=== PATIENT | male | born 1965 | race Caucasian/White ===

== ENCOUNTER 2017-12-25 14:33 | Inpatient (IN) | payer BC ==
[2017-12-25 14:51] VITALS: BMI 30.7
[2017-12-25] MEDS ORDERED: ALBUTEROL SO4 2.5/IPRATROPIUM 0.5 INH SOL 3 ML VIAL.NEB. NEB ONE ×4 (14:53→17:09)
[2017-12-25] MEDS ORDERED: predniSONE 20 MG TABLET (UD) PO ONE (14:53)
[2017-12-25] MEDS ORDERED: methylPREDNISolone NA SUCC 125 MG/2 ML VIAL ONE (15:46)
[2017-12-25] MEDS ORDERED: AZITHROMYCIN IVPB 500 MG in DEXTROSE 5%-WATER - 250 ML IVPB ONE (15:52)
[2017-12-25] MEDS ORDERED: AZITHROMYCIN 500 MG VIAL IVPB ONE (15:56)
[2017-12-25 15:58] LABS: BASO % 1.8 % (0-2.0); EOS % 2.1 % (0-4.5); HEMATOCRIT 45.7 % (35.4-49); HEMOGLOBIN 15.9 GM/dl (11.7-16.9); LYMPH % 17.7 % (8-40); MCH 31.7 pg (25.7-33.7); MCHC 34.9 g/dl (32.0-35.9); MEAN CELL VOLUME 90.9 fl (80-96); MEAN PLT VOLUME 8.7 fl (7.5-11.1); MONO % 10.3 % (3.8-10.2); NEUT % 68.1 % (42.8-82.8); PLATELET COUNT 196 K/MM3 (134-434); RBC 5.02 M/mm3 (4.00-5.60); RDW 12.1 % (11.9-15.9); WHITE BLOOD COUNT 10.4 K/mm3 (4.0-10.8)
[2017-12-25] MEDS ORDERED: methylPREDNISolone NA SUCC 125 MG/2 ML VIAL IVPUSH ONE (15:59)
[2017-12-25] MEDS ORDERED: chlordiazePOXIDE HCL 25 MG CAPSULE PO ONE (15:59)
[2017-12-25] MEDS ORDERED: chlordiazePOXIDE HCL 25 MG CAPSULE ONE (16:00)
--- NOTE | 2017-12-25 16:06 | PDOC ---
History of Present Illness - General History Source: Patient, Family Exam Limitations: No Limitations <Emmanuel Beltran - Last Filed: 12/25/17 16:31> - General History Source: Patient, Family, Old Records Exam Limitations: No Limitations - History of Present Illness Initial Comments: 12/25/17 16:10 The patient is a 52 year old male with a past medical history of smoking, asthma , and hyperlipidemia who presents to the emergency department with difficulty breathing, cough, and abdominal pain for 1 day. The patient states that 4 weeks ago he had similar symptoms and went to his primary doctor, Dr. Mayorga. At that time he was prescribed a course of antibiotics, a Z-bridgett for 3 days, and prednisone for 6 days. He reports that his symptoms improved but never completely resolved. Today he reports that he woke up with difficulty breathing , cough, and abdominal pain. He describes his abdominal pain as estrada along the inferior border of his left ribs. <Erick Tirado - Last Filed: 12/25/17 17:16> - General Chief Complaint: Shortness of Breath Stated Complaint: COUGH, Time Seen by Provider: 12/25/17 14:34 Past History - Past Medical History Asthma: Yes COPD: No Psychiatric Problems: Yes (drug and etoh abuse) - Suicide/Smoking/Psychosocial Hx Smoking Status: Yes Smoking History: Current every day smoker Have you smoked in the past 12 months: Yes Number of Cigarettes Smoked Daily: 30 Information on smoking cessation initiated: Yes 'Breaking Loose' booklet given: 12/25/17 Hx Alcohol Use: Yes (gallon wine per day) Drug/Substance Use Hx: Yes (xanax, cocaine) Substance Use Type: Alcohol, Cocaine, Tranquilizers <Emmanuel Beltran - Last Filed: 12/25/17 16:31> <Erick Tirado - Last Filed: 12/25/17 17:16> - Past Medical History Allergies/Adverse Reactions: Allergies Allergy/AdvReac Type Severity Reaction Status Date / Time No Known Allergies Allergy Verified 12/25/17 14:34 Home Medications: Ambulatory Orders Albuterol Sulfate Inhaler - [Ventolin HFA Inhaler -] 2 inh PO Q4H PRN #1 inh 04/17 Fluticasone/Salmeterol [Advair Hfa 230-21 Mcg Inhaler] 1 inh PO BID #1 inhaler 10/09/14 Montelukast Sodium [Singulair] 10 mg PO DAILY 12/25/17 Review of Systems - Review of Systems Able to Perform ROS?: Yes Comments:: 12/25/17 16:10 GENERAL/CONSTITUTIONAL: No fever or chills. No weakness. HEAD, EYES, EARS, NOSE AND THROAT: No change in vision. No ear pain or discharge. No sore throat. CARDIOVASCULAR: No chest pain. RESPIRATORY: (+) cough, difficulty breathing. GASTROINTESTINAL: (+) Abdominal pain. No nausea, vomiting, diarrhea or constipation. GENITOURINARY: No dysuria, frequency, or change in urination. MUSCULOSKELETAL: No joint or muscle swelling or pain. No neck or back pain. SKIN: No rash NEUROLOGIC: No headache, vertigo, loss of consciousness, or change in strength/ sensation. ENDOCRINE: No increased thirst. No abnormal weight change. HEMATOLOGIC/LYMPHATIC: No anemia, easy bleeding, or history of blood clots. ALLERGIC/IMMUNOLOGIC: No hives or skin allergy. <Erick Tirado - Last Filed: 12/25/17 17:16> *Physical Exam - Vital Signs Last Vital Signs Temp Pulse Resp BP Pulse Ox 98.4 F 103 H 24 126/82 98 12/25/17 14:33 12/25/17 14:33 12/25/17 14:33 12/25/17 14:33 12/25/17 14:49 <Emmanuel Beltran - Last Filed: 12/25/17 16:31> - Vital Signs Last Vital Signs Temp Pulse Resp BP Pulse Ox 98.4 F 111 H 22 121/81 98 12/25/17 14:33 12/25/17 16:03 12/25/17 16:03 12/25/17 16:03 12/25/17 16:03 - Physical Exam Comments: 12/25/17 16:11 GENERAL: Awake, alert, and fully oriented, in no acute distress HEAD: No signs of trauma EYES: PERRLA, EOMI, sclera anicteric, conjunctiva clear ENT: Auricles normal inspection, hearing grossly normal, nares patent, oropharynx clear without exudates. Moist mucosa NECK: Normal ROM, supple, no lymphadenopathy, JVD, or masses LUNGS: (+) Diffuse expiratory wheezes bilaterally, Mildly tachypneic HEART: Regular rate and rhythm, normal S1 and S2, no murmurs, rubs or gallops ABDOMEN: Soft, nontender, normoactive bowel sounds. No guarding, no rebound. No masses EXTREMITIES: Normal range of motion, no edema. No clubbing or cyanosis. No cords, erythema, or tenderness NEUROLOGICAL: Cranial nerves II through XII grossly intact. Normal speech, normal gait SKIN: Warm, Dry, normal turgor, no rashes or lesions noted. <Erick Tirado - Last Filed: 12/25/17 17:16> Heart Score/ECG Review #1 ECG reviewed & interpreted by me at: 15:35 12/25/17 16:10 NSR 103, no std/veronika, T wave flat III, normal axis, normal intervals, QTC 455 msec <Emmanuel Beltran - Last Filed: 12/25/17 16:31> ED Treatment Course - LABORATORY CBC & Chemistry Diagram: 12/25/17 15:49 12/25/17 15:49 - ADDITIONAL ORDERS Additional order review: 12/25/17 15:49 RBC 5.02 MCV 90.9 MCHC 34.9 RDW 12.1 MPV 8.7 Neutrophils % 68.1 Lymphocytes % 17.7 Monocytes % 10.3 H Eosinophils % 2.1 Basophils % 1.8 - RADIOLOGY Radiology Studies Ordered: Category Date Time Status CHEST X-RAY PORTABLE* [RAD] Stat Radiology 12/25/17 14:53 Taken - Medications Given in the ED: ED Medications Discontinued Medications Generic Name Dose Route Start Last Admin Trade Name Freq PRN Reason Stop Dose Admin Albuterol/Ipratropium 3 amp 12/25/17 14:53 12/25/17 14:54 Duoneb - NEB 12/25/17 14:54 3 amp ONCE ONE Administration <Emmanuel Beltran - Last Filed: 12/25/17 16:31> - LABORATORY CBC & Chemistry Diagram: 12/25/17 15:49 12/25/17 15:49 - ADDITIONAL ORDERS Additional order review: 12/25/17 15:49 RBC 5.02 MCV 90.9 MCHC 34.9 RDW 12.1 MPV 8.7 Neutrophils % 68.1 Lymphocytes % 17.7 Monocytes % 10.3 H Eosinophils % 2.1 Basophils % 1.8 - RADIOLOGY Radiograph Interpretation: 12/25/17 17:16 EXAM#: TYPE/EXAM: RESULT: [id number] RAD/CHEST X-RAY PORTABLE* Indication: Cough. Wheezing. Technique: Single AP portable view of the chest. Comparison: chest x-ray. Findings: There is no evidence of acute infiltrate, pulmonary vascular congestion or pleural effusion. There is no definable pneumothorax. Normal size and contours of the cardiomediastinal silhouette. The thoracic aorta is mildly uncoiled. No abnormal deviation of the trachea. There is acromioclavicular arthropathy. Impression: No evidence of acute infiltrate, pulmonary vascular congestion or pleural effusion. Reported By: Malcolm Vazquez DO 12/25/17 1621 - Medications Given in the ED: ED Medications Discontinued Medications Generic Name Dose Route Start Last Admin Trade Name Freq PRN Reason Stop Dose Admin Albuterol/Ipratropium 3 amp 12/25/17 14:53 12/25/17 14:54 Duoneb - NEB 12/25/17 14:54 3 amp ONCE ONE Administration Chlordiazepoxide HCl 50 mg 12/25/17 15:59 12/25/17 16:02 Librium - PO 12/25/17 16:00 50 mg ONCE ONE Administration Methylprednisolone Sodium Succinate 125 mg 12/25/17 15:59 12/25/17 16:02 Solu-Medrol - IVPUSH 12/25/17 16:00 125 mg ONCE ONE Administration Prednisone 60 mg 12/25/17 14:53 12/25/17 15:55 Deltasone - PO 12/25/17 14:54 Not Given ONCE ONE <Erick Tirado - Last Filed: 12/25/17 17:16> Medical Decision Making - Medical Decision Making 12/25/17 16:06 A portion of this note was documented by scribe services under my direction. I have reviewed the details of the note, within reason, and agree with the documentation with the following case summary and management plan written by me. Patient treated in the ED. Nursing notes are reviewed and incorporated into the medical decision-making. Vital signs reviewed. Peripheral IV access obtained by the nurse, laboratory studies are drawn and sent, reviewed and interpreted by myself. Vital Signs Temp Pulse Resp BP Pulse Ox 98.4 F 111 H 22 121/81 98 12/25/17 14:33 12/25/17 16:03 12/25/17 16:03 12/25/17 16:03 12/25/17 16:03 52-year-old male with past medical history of alcohol abuse, hyperlipidemia, asthma, current smoker presents with worsening coughing and wheezing. The patient reports one month of the symptoms. One month ago, the patient was prescribed prednisone and was taking albuterol with some improvement in symptoms. However in the last 2 days, the patient has reported worsening productive cough with difficulty breathing and reproducible chest pain with cough. Denies fevers or chills. States has become increasingly more difficult to breathe despite taking albuterol. I suspect patient likely having an asthma or COPD exacerbation with probable underlying pneumonia. We'll start doing nebs in addition to steroids and antibiotics. Patient denies alcohol draws at this time but will treat him prophylactically with Librium. If the symptoms do not improve, the patient will need to be admitted to the hospital for further evaluation. 12/25/17 16:31 Chest xray reviewed. No acute findings. CBC, BMP 12/25/17 15:49 12/25/17 15:49 CMP Sodium 134 mmol/L (136-145) L 12/25/17 15:49 Potassium 3.7 mmol/L (3.5-5.1) 12/25/17 15:49 Chloride 101 mmol/L (98-107) 12/25/17 15:49 Carbon Dioxide 26 mmol/L (22-28) 12/25/17 15:49 Anion Gap 7 (8-16) L 12/25/17 15:49 BUN 14 mg/dl (7-18) 12/25/17 15:49 Creatinine 1.2 mg/dl (0.6-1.3) 12/25/17 15:49 Creat Clearance w eGFR > 60 (>60) 12/25/17 15:49 Random Glucose 151 mg/dl (74-106) H 12/25/17 15:49 Calcium 9.0 mg/dl (8.4-10.2) 12/25/17 15:49 Magnesium 2.0 mg/dL (1.8-2.4) 12/25/17 15:49 Total Bilirubin 1.1 mg/dl (0.2-1.0) H 12/25/17 15:49 AST 70 U/L (10-42) H 12/25/17 15:49 ALT 47 U/L (10-40) H 12/25/17 15:49 Alkaline Phosphatase 49 U/L (32-92) 12/25/17 15:49 Troponin I < 0.03 ng/ml (0.00-0.06) 12/25/17 15:49 Total Protein 7.1 g/dl (6.4-8.3) 12/25/17 15:49 Albumin 4.4 g/dl (3.5-5.0) 12/25/17 15:49 The patient continues to wheeze despite the treatments. Given the symptoms, decision was made to admit the patient. I had spoken with the patient, who agrees with admission to the hospital. Case discussed with Dr. Mayorga. Given that the patient will be on librium and with asthma/COPD exacerbation, decision was made to admit patient to telemetry at [facility]. Case discussed in detail with admitting physician including history, physical exam and ancillary studies. Admitting physician has assumed care for the patient, will follow all pending diagnostics and will complete the evaluation and treatment. <Emmanuel Beltran - Last Filed: 12/25/17 16:31> *DC/Admit/Observation/Transfer - Discharge Dispostion Decision to Admit order: Yes <Emmanuel Beltran - Last Filed: 12/25/17 16:31> - Attestations Scribe Attestion: 12/25/17 16:11 Documentation prepared by Erick Tirado, acting as medical genetics director for Emmanuel Beltran MD. <Erick Tirado - Last Filed: 12/25/17 17:16> Diagnosis at time of Disposition: Acute asthma exacerbation Qualifiers: Asthma severity: unspecified severity Asthma persistence: unspecified Qualified Code(s): J45.901 - Unspecified asthma with (acute) exacerbation PNA (pneumonia) Qualifiers: Pneumonia type: due to unspecified organism Laterality: unspecified laterality Lung location: unspecified part of lung Qualified Code(s): J18.9 - Pneumonia, unspecified organism - Discharge Dispostion Condition at time of disposition: Stable
[2017-12-25 16:14] LABS: ALBUMIN 4.4 g/dl (3.5-5.0); ALK PHOS 49 U/L (32-92); ANION GAP 7 (8-16); BILIRUBIN,TOTAL 1.1 mg/dl (0.2-1.0); BLOOD UREA NITROGEN 14 mg/dl (7-18); CHLORIDE 101 mmol/L (98-107); CO2 26 mmol/L (22-28); CREATININE 1.2 mg/dl (0.6-1.3); GLUCOSE,RANDOM 151 mg/dl (74-106); POTASSIUM 3.7 mmol/L (3.5-5.1); SGOT/AST 70 U/L (10-42); SGPT/ALT 47 U/L (10-40); SODIUM 134 mmol/L (136-145); TOT PROT 7.1 g/dl (6.4-8.3)
[2017-12-25] MEDS ORDERED: CEFTRIAXONE 1,000 MG in DEXTROSE 5%-WATER - 50 ML IVPB ONE (16:25)
[2017-12-25] MEDS ORDERED: MAGNESIUM SULF 50% (8.12 MEQ/2 ML-1 GM VIAL) IVPB ONE (16:25)
[2017-12-25] MEDS ORDERED: cefTRIAXone SODIUM 1 GM VIAL ONE (16:58)
[2017-12-25] MEDS ORDERED: MAGNESIUM 1GM/D5W - 2 GM/200 ML IVPB IVPB ONE (16:58)
--- NOTE | 2017-12-25 20:23 | HP ---
Admitting History and Physical - Primary Care Physician PCP: Deonte Mayorga - Admission Chief Complaint: Cough, wheezing History of Present Illness: Pt with signigificant Hx/o Asthma, smoker, alcohol abuse (one gallon of wine/ beer per day) started to cough, wheeze 2 days ago; pt got worse and today came to ER were was found to have acute asthma exacerbation, probable PNA. History Source: Patient - Past Medical History Cardiovascular: Yes: Hyperlipdemia Pulmonary: Yes: Asthma - Smoking History Smoking history: Current every day smoker Have you smoked in the past 12 months: Yes Aproximately how many cigarettes per day: 30 - Alcohol/Substance Use Hx Alcohol Use: Yes (gallon wine per day) Home Medications - Allergies Allergies/Adverse Reactions: Allergies Allergy/AdvReac Type Severity Reaction Status Date / Time No Known Allergies Allergy Verified 12/25/17 14:34 - Home Medications Home Medications: Ambulatory Orders Albuterol Sulfate Inhaler - [Ventolin HFA Inhaler -] 2 inh PO Q4H PRN #1 inh 04/17 Fluticasone/Salmeterol [Advair Hfa 230-21 Mcg Inhaler] 1 inh PO BID #1 inhaler 10/09/14 Montelukast Sodium [Singulair] 10 mg PO DAILY 12/25/17 Review of Systems - Review of Systems Constitutional: reports: Chills, Diaphoresis, Weakness Eyes: denies: Blurred Vision HENT: reports: Difficult Swallowing. denies: Ear Discharge, Ear Pain, Nasal Congestion, Throat Pain Neck: denies: Pain on Movement, Stiffness Cardiovascular: reports: Palpitations (heart betting fast; no dizziness or SOB or CP associated with palpitations). denies: Chest Pain, Edema Respiratory: reports: Cough, Wheezing Gastrointestinal: reports: Abdominal Pain (LUQ when coughing) Genitourinary: denies: Burning, Discharge Musculoskeletal: reports: Joint Pain (from falling when gets drunk). denies: Back Pain Integumentary: reports: Bruising (from falling when gets drunk). denies: Eczema , Rash Neurological: denies: Change in LOC, Change in Speech, Incoordination, Numbness Endocrine: denies: Excessive Sweating, Intolerance to Cold Hematology/Lymphatic: denies: Easily Bruised, Excessive Bleeding Psychiatric: denies: Altered Sleep Pattern, Anxiety, Hallucinations Physical Examination Vital Signs: Vital Signs Temperature 99.4 F 12/25/17 19:25 Pulse Rate 105 H 12/25/17 19:25 Respiratory Rate 20 12/25/17 19:25 Blood Pressure 134/78 12/25/17 19:25 O2 Sat by Pulse Oximetry (%) 97 12/25/17 18:21 Constitutional: Yes: No Distress, Calm Eyes: Yes: Conjunctiva Clear, EOM Intact HENT: Yes: Thrush, Other. No: Drooling, Rhinnorhea Neck: Yes: Trachea Midline. No: Lymphadenopathy Cardiovascular: Yes: Tachycardia, S1, S2 Respiratory: Yes: Regular, CTA Bilaterally, Wheezes Gastrointestinal: Yes: Normal Bowel Sounds, Soft. No: Tenderness ...Rectal Exam: Yes: Deferred Extremities: Yes: Other (multiple bruses on the legs, arma) Edema: No Neurological: Yes: Alert, Oriented, Other (symmetric motor and sensory examnation in UE/ LE/ face) ...Motor Strength: WNL Psychiatric: Yes: Alert, Oriented Labs: CBC, BMP 12/25/17 15:49 12/25/17 15:49 Imaging - Results Chest X-ray: Report Reviewed Problem List - Problems (1) Alcohol abuse Code(s): F10.10 - ALCOHOL ABUSE, UNCOMPLICATED (2) Acute asthma exacerbation Code(s): J45.901 - UNSPECIFIED ASTHMA WITH (ACUTE) EXACERBATION Qualifiers: Asthma severity: unspecified severity Asthma persistence: unspecified Qualified Code(s): J45.901 - Unspecified asthma with (acute) exacerbation (3) PNA (pneumonia) Code(s): J18.9 - PNEUMONIA, UNSPECIFIED ORGANISM Qualifiers: Pneumonia type: due to unspecified organism Laterality: unspecified laterality Lung location: unspecified part of lung Qualified Code(s): J18.9 - Pneumonia, unspecified organism (4) Tachycardia Code(s): R00.0 - TACHYCARDIA, UNSPECIFIED (5) Thrush, oral Code(s): B37.0 - CANDIDAL STOMATITIS (6) Hyponatremia Assessment/Plan: borderline Code(s): E87.1 - HYPO-OSMOLALITY AND HYPONATREMIA (7) GERD (gastroesophageal reflux disease) Code(s): K21.9 - GASTRO-ESOPHAGEAL REFLUX DISEASE WITHOUT ESOPHAGITIS (8) Elevated LFTs Code(s): R79.89 - OTHER SPECIFIED ABNORMAL FINDINGS OF BLOOD CHEMISTRY Assessment/Plan Admit to monitor bed (pt with respiratory disease, requires Librium for alcohol withdrawing; to monitor for respiratory decompensation) IV solu-medrol DUoned nebulized Pulmonary consult Nystatin oral solution AM labs Case was d/w pt's nurse
[2017-12-25] MEDS: chlordiazePOXIDE 5 MG CAPSULE PO SCH (20:30)
[2017-12-25] MEDS: PANTOPRAZOLE 40 MG TABLET (FP) PO SCH (20:41)
[2017-12-25] MEDS: methylPREDNISolone NA SUCC 40 MG/1 ML VIAL IVPUSH SCH (21:15)
[2017-12-25] MEDS: BUDESONIDE/FORMETEROL FUMARATE 80/4.5 mcg INHALER IH SCH (22:16)
[2017-12-26] MEDS: chlordiazePOXIDE 5 MG CAPSULE PO SCH ×5 (00:15→23:20)
[2017-12-26] MEDS: NYSTATIN 500,000 UNITS/5 ML SUSPENSION PO SCH ×5 (00:44→23:20)
[2017-12-26] MEDS: methylPREDNISolone NA SUCC 40 MG/1 ML VIAL IVPUSH SCH ×4 (02:10→21:10)
[2017-12-26] MEDS: ALBUTEROL SO4 2.5/IPRATROPIUM 0.5 INH SOL 3 ML VIAL.NEB. NEB SCH ×4 (06:00→20:25)
[2017-12-26 07:34] LABS: HEMATOCRIT 43.8 % (35.4-49); HEMOGLOBIN 14.9 GM/dL (11.7-16.9); MCH 31.7 pg (25.7-33.7); MEAN CELL VOLUME 93.1 fl (80-96); MEAN PLT VOLUME 9.2 fl (7.5-11.1); PLATELET COUNT 152 K/MM3 (134-434); RDW 12.8 % (11.9-15.9); WHITE BLOOD COUNT 7.5 K/mm3 (4.0-10.0)
[2017-12-26 07:48] LABS: CHLORIDE 106 mmol/L (98-107); POTASSIUM 4.1 mmol/L (3.5-5.1); SODIUM 142 mmol/L (136-145)
[2017-12-26 07:57] LABS: ALBUMIN 3.6 g/dl (3.4-5.0); ALK PHOS 52 U/L (45-117); ANION GAP 9 (8-16); BLOOD UREA NITROGEN 13 mg/dL (7-18); CALCIUM 8.5 mg/dL (8.5-10.1); CO2 27 mmol/L (21-32); CREATININE 1.1 mg/dL (0.7-1.3); GLUCOSE,RANDOM 260 mg/dL (74-106); SGOT/AST 43 U/L (15-37); SGPT/ALT 49 U/L (12-78); TOT PROT 6.8 g/dl (6.4-8.2)
--- NOTE | 2017-12-26 08:45 | EKG ---
Test Reason : Blood Pressure : / mmHG Vent. Rate : 103 BPM Atrial Rate : 103 BPM P-R Int : 126 ms QRS Dur : 082 ms QT Int : 348 ms P-R-T Axes : 065 020 042 degrees QTc Int : 455 ms SINUS TACHYCARDIA OTHERWISE NORMAL ECG WHEN COMPARED WITH ECG OF 16-MAR-2014 17:20, NO SIGNIFICANT CHANGE WAS FOUND Confirmed by CATHERINE GAN MD ([id number]) on 12/26/2017 8:45:27 AM Referred By: MD DE LEON Confirmed By:CATHERINE GAN MD
[2017-12-26] MEDS: PANTOPRAZOLE 40 MG TABLET (FP) PO SCH (09:09)
[2017-12-26] MEDS: BUDESONIDE/FORMETEROL FUMARATE 80/4.5 mcg INHALER IH SCH ×2 (09:17→21:11)
[2017-12-26] MEDS ORDERED: ACETAMINOPHEN 325 MG TABLET (FP) ONE (09:38)
[2017-12-26] MEDS: ACETAMINOPHEN 325 MG TABLET (FP) PO PRN (09:40)
--- NOTE | 2017-12-26 11:07 | PN ---
Progress Note, Physician History of Present Illness: Pt feels anxious. Pt w/o SOB while in bed, no CP/ palpitations/ dizziness/ abd pain - Current Medication List Current Medications: Active Medications Acetaminophen (Tylenol -) 650 mg PO Q6H PRN PRN Reason: PAIN Albuterol/Ipratropium (Duoneb -) 1 amp NEB Q6H [facility] Stop: 12/26/17 11:46 Last Admin: 12/26/17 06:00 Dose: 1 amp Budesonide/Formoterol Fumarate (Symbicort 80/4.5mcg -) 2 puff IH BID [facility] Last Admin: 12/26/17 09:17 Dose: 2 puff Chlordiazepoxide HCl (Librium -) 10 mg PO Q6HPO [facility] Last Admin: 12/26/17 05:46 Dose: 10 mg Chlordiazepoxide HCl (Librium -) 10 mg PO Q6H PRN PRN Reason: WITHDRAWAL(CONT SUBST) Methylprednisolone Sodium Succinate (Solu-Medrol -) 40 mg IVPUSH Q6H-IV [facility] Last Admin: 12/26/17 09:09 Dose: 40 mg Montelukast Sodium (Singulair -) 10 mg PO HS [place] Nystatin (Nystatin Oral Suspension -) 500,000 units PO Q6HPO [facility] Last Admin: 12/26/17 05:46 Dose: 500,000 units Pantoprazole Sodium (Protonix -) 40 mg PO DAILY [facility] Last Admin: 12/26/17 09:09 Dose: 40 mg - Objective Vital Signs: Vital Signs Temperature 97.5 F L 12/26/17 05:29 Pulse Rate 84 12/26/17 05:29 Respiratory Rate 20 12/26/17 05:29 Blood Pressure 105/74 12/26/17 05:29 O2 Sat by Pulse Oximetry (%) 96 12/25/17 19:25 Constitutional: Yes: No Distress, Calm, Anxious Cardiovascular: Yes: Regular Rate and Rhythm, S1, S2 Respiratory: Yes: Regular, Rhonchi, Wheezes Gastrointestinal: Yes: Normal Bowel Sounds, Soft, Abdomen, Obese. No: Tenderness Neurological: Yes: Alert, Oriented, Other (slight hands tremor) Labs: CBC, BMP 12/26/17 06:10 12/26/17 06:10 Problem List - Problems (1) Alcohol abuse Code(s): F10.10 - ALCOHOL ABUSE, UNCOMPLICATED (2) Acute asthma exacerbation Code(s): J45.901 - UNSPECIFIED ASTHMA WITH (ACUTE) EXACERBATION Qualifiers: Asthma severity: unspecified severity Asthma persistence: unspecified Qualified Code(s): J45.901 - Unspecified asthma with (acute) exacerbation (3) PNA (pneumonia) Code(s): J18.9 - PNEUMONIA, UNSPECIFIED ORGANISM Qualifiers: Pneumonia type: due to unspecified organism Laterality: unspecified laterality Lung location: unspecified part of lung Qualified Code(s): J18.9 - Pneumonia, unspecified organism (4) Tachycardia Code(s): R00.0 - TACHYCARDIA, UNSPECIFIED (5) Thrush, oral Code(s): B37.0 - CANDIDAL STOMATITIS (6) Hyponatremia Code(s): E87.1 - HYPO-OSMOLALITY AND HYPONATREMIA (7) GERD (gastroesophageal reflux disease) Code(s): K21.9 - GASTRO-ESOPHAGEAL REFLUX DISEASE WITHOUT ESOPHAGITIS (8) Elevated LFTs Code(s): R79.89 - OTHER SPECIFIED ABNORMAL FINDINGS OF BLOOD CHEMISTRY (9) Elevated fasting glucose Assessment/Plan: while on IV steroids Code(s): R73.01 - IMPAIRED FASTING GLUCOSE (10) Acute bronchitis Code(s): J20.9 - ACUTE BRONCHITIS, UNSPECIFIED (11) COPD with acute exacerbation Code(s): J44.1 - CHRONIC OBSTRUCTIVE PULMONARY DISEASE W (ACUTE) EXACERBATION Assessment/Plan Admitted to monitor bed (pt with respiratory disease, requires Librium for alcohol withdrawing; to monitor for respiratory decompensation); to increase Librium dose. IV solu-medrol Duoned nebulized Pulmonary consult appreciated Nystatin oral solution Nicotine patch Azithromycin AM labs Case was d/w pt's nurse
--- NOTE | 2017-12-26 11:11 | CON.PULM ---
Consult Consult Specialty:: PULMONARY Referred by:: Dr. Mayorga Reason for Consultation:: COPD - History of Present Illness Chief Complaint: shortness of breath History of Present Illness: 52yo male with h/o COPD, alcohol abuse, smoker who was admitted with worsening shortness of breath x 2 days. Reports a nonproductive cough and wheezing. No fevers, chills or sweats. +left upper quadrant pain with coughing. Used his inhalers without relief, could not produce enough inspiratory effort to get his medications from his inhalers. Started smoking at age 11, smokes on average 1.[address] chest in 2015 with a stable 4mm RML nodule. - History Source History Provided By: Patient, Medical Record Limitations to Obtaining History: No Limitations - Past Medical History Cardio/Vascular: Yes: Hyperlipdemia Pulmonary: Yes: Asthma - Alcohol/Substance Use Hx Alcohol Use: Yes (gallon wine per day) - Smoking History Smoking history: Current every day smoker Have you smoked in the past 12 months: Yes Aproximately how many cigarettes per day: 30 Home Medications - Allergies Allergies/Adverse Reactions: Allergies Allergy/AdvReac Type Severity Reaction Status Date / Time No Known Allergies Allergy Verified 12/25/17 14:34 - Home Medications Home Medications: Ambulatory Orders Albuterol Sulfate Inhaler - [Ventolin HFA Inhaler -] 2 inh PO Q4H PRN #1 inh 04/17 Fluticasone/Salmeterol [Advair Hfa 230-21 Mcg Inhaler] 1 inh PO BID #1 inhaler 10/09/14 Montelukast Sodium [Singulair] 10 mg PO DAILY 12/25/17 Review of Systems - Review of Systems Constitutional: reports: Weakness. denies: Chills, Fever Eyes: denies: Recent Change in Vision HENT: denies: Nasal Congestion, Throat Pain Neck: denies: Stiffness, Tenderness Cardiovascular: reports: Shortness of Breath. denies: Chest Pain, Edema, Palpitations Respiratory: reports: Cough, Exercise Intolerance, SOB, SOB on Exertion, Wheezing. denies: Hemoptysis Gastrointestinal: reports: Abdominal Pain. denies: Nausea, Vomiting Genitourinary: denies: Dysuria, Hematuria Neurological: denies: Dizziness, Headache Endocrine: denies: Unexplained Weight Loss Physical Exam Vital Sings: Vital Signs Temperature 97.5 F L 12/26/17 05:29 Pulse Rate 84 12/26/17 05:29 Respiratory Rate 20 12/26/17 05:29 Blood Pressure 105/74 12/26/17 05:29 O2 Sat by Pulse Oximetry (%) 96 12/25/17 19:25 Constitutional: Yes: Calm Eyes: Yes: Conjunctiva Clear, EOM Intact HENT: Yes: Atraumatic, Normocephalic Neck: Yes: Supple, Trachea Midline Cardiovascular: Yes: Regular Rate and Rhythm Respiratory: Yes: Poor Air Entry, Rhonchi, Wheezes, Other (prolonged expiration) ...Clubbing: No Gastrointestinal: Yes: Normal Bowel Sounds, Soft. No: Tenderness Edema: No Neurological: Yes: Alert, Oriented Labs: CBC, BMP 12/26/17 06:10 12/26/17 06:10 Imaging - Results Chest X-ray: Report Reviewed, Image Reviewed (no infiltrates) Problem List - Problems (1) COPD with acute exacerbation Code(s): J44.1 - CHRONIC OBSTRUCTIVE PULMONARY DISEASE W (ACUTE) EXACERBATION (2) Alcohol abuse Code(s): F10.10 - ALCOHOL ABUSE, UNCOMPLICATED (3) Elevated LFTs Code(s): R79.89 - OTHER SPECIFIED ABNORMAL FINDINGS OF BLOOD CHEMISTRY (4) Smoker Code(s): F17.200 - NICOTINE DEPENDENCE, UNSPECIFIED, UNCOMPLICATED Assessment/Plan Acute COPD Exacerbation Alcohol Abuse Elevated LFTs likely above Smoker - IV medrol - inhaled bronchodilators standing and PRN - O2 as needed - IVF - trend LFTs - smoking cessation - DVT prophylaxis Thank you for this consult Justice Ibarra MD
[2017-12-26] MEDS: chlordiazePOXIDE 5 MG CAPSULE PO PRN ×2 (11:25→16:16)
[2017-12-26] MEDS: INSULIN SLIDING SCALE (NOVOLOG) 1 VIAL SQ SCH ×4 (13:48→23:49)
[2017-12-26] MEDS: NICOTINE 21 MG/24 HOURS TOPICAL PATCH TD SCH (13:48)
[2017-12-26] MEDS: AZITHROMYCIN IVPB 500 MG in DEXTROSE 5%-WATER - 250 ML IVPB SCH (15:51)
[2017-12-26] MEDS: MONTELUKAST NA 10 MG TABLET PO SCH (21:49)
[2017-12-27] MEDS: methylPREDNISolone NA SUCC 40 MG/1 ML VIAL IVPUSH SCH ×3 (03:31→17:05)
[2017-12-27] MEDS: INSULIN SLIDING SCALE (NOVOLOG) 1 VIAL SQ SCH ×4 (04:02→17:04)
[2017-12-27] MEDS: ACETAMINOPHEN 325 MG TABLET (FP) PO PRN ×3 (05:33→18:07)
[2017-12-27] MEDS: NYSTATIN 500,000 UNITS/5 ML SUSPENSION PO SCH ×3 (05:34→17:05)
[2017-12-27] MEDS: chlordiazePOXIDE 5 MG CAPSULE PO SCH (05:36)
[2017-12-27 08:20] LABS: ANION GAP 7 (8-16); BLOOD UREA NITROGEN 16 mg/dL (7-18); CALCIUM 8.6 mg/dL (8.5-10.1); CHLORIDE 105 mmol/L (98-107); CO2 27 mmol/L (21-32); GLUCOSE,RANDOM 168 mg/dL (74-106); SODIUM 139 mmol/L (136-145)
[2017-12-27] MEDS ORDERED: PT OWN MED DRAWER 7, Y5N ONE (09:21)
[2017-12-27] MEDS: NICOTINE 21 MG/24 HOURS TOPICAL PATCH TD SCH (09:24)
[2017-12-27] MEDS: PANTOPRAZOLE 40 MG TABLET (FP) PO SCH (09:24)
[2017-12-27] MEDS: chlordiazePOXIDE 5 MG CAPSULE PO PRN (09:24)
[2017-12-27] MEDS: BUDESONIDE/FORMETEROL FUMARATE 80/4.5 mcg INHALER IH SCH ×2 (09:24→21:31)
[2017-12-27] MEDS: ALBUTEROL SO4 0.083% IH SOL 2.5 MG/3 ML VIAL.NEB. NEB PRN ×2 (09:27→17:20)
[2017-12-27] MEDS ORDERED: INSULIN (NOVOLOG) ASPART 100 UNITS/ML 10ML VIAL ONE (09:31)
--- NOTE | 2017-12-27 10:33 | PN ---
Progress Note, Physician History of Present Illness: Pt still feels anxious. Pt c/o depression, episodes of crying. Pt c/o rib pain associated with cough. Pt w/o SOB while in bed, no CP/ palpitations/ dizziness/ abd pain. Pt is wheezing less. - Current Medication List Current Medications: Active Medications Acetaminophen (Tylenol -) 650 mg PO Q6H PRN PRN Reason: PAIN Last Admin: 12/27/17 05:33 Dose: 650 mg Albuterol Sulfate (Ventolin 0.083% Nebulizer Soln -) 1 amp NEB Q4H PRN PRN Reason: SHORT OF BREATH/WHEEZING Last Admin: 12/27/17 09:27 Dose: 1 amp Budesonide/Formoterol Fumarate (Symbicort 80/4.5mcg -) 2 puff IH BID [facility] Last Admin: 12/27/17 09:24 Dose: 2 puff Chlordiazepoxide HCl (Librium -) 10 mg PO Q6H PRN PRN Reason: WITHDRAWAL(CONT SUBST) Last Admin: 12/27/17 09:24 Dose: 10 mg Chlordiazepoxide HCl (Librium -) 20 mg PO Q6HPO [facility] Last Admin: 12/27/17 05:36 Dose: 20 mg Azithromycin 500 mg/ Dextrose 250 mls @ 250 mls/hr IVPB DAILY [facility] Stop: 12/28/17 11:44 Last Admin: 12/26/17 15:51 Dose: 250 mls/hr Insulin Aspart (Novolog Vial Sliding Scale -) 1 vial SQ Q4H [facility]; Protocol Last Admin: 12/27/17 09:39 Dose: 2 unit Methylprednisolone Sodium Succinate (Solu-Medrol -) 40 mg IVPUSH Q6H-IV [facility] Last Admin: 12/27/17 09:24 Dose: 40 mg Montelukast Sodium (Singulair -) 10 mg PO HS [facility] Last Admin: 12/26/17 21:49 Dose: 10 mg Nicotine (Nicoderm Patch -) 21 mg TD DAILY [facility] Last Admin: 12/27/17 09:24 Dose: 21 mg Nystatin (Nystatin Oral Suspension -) 500,000 units PO Q6HPO [facility] Last Admin: 12/27/17 05:34 Dose: 500,000 units Pantoprazole Sodium (Protonix -) 40 mg PO DAILY [facility] Last Admin: 12/27/17 09:24 Dose: 40 mg - Objective Vital Signs: Vital Signs Temperature 98.4 F 12/27/17 05:31 Pulse Rate 98 H 12/27/17 05:31 Respiratory Rate 20 12/27/17 05:31 Blood Pressure 149/82 12/27/17 05:31 O2 Sat by Pulse Oximetry (%) 96 12/26/17 20:12 Constitutional: Yes: No Distress, Calm Cardiovascular: Yes: Regular Rate and Rhythm, S1, S2 Respiratory: Yes: Regular, CTA Bilaterally. No: Other Gastrointestinal: Yes: Normal Bowel Sounds, Soft, Abdomen, Obese. No: Tenderness Edema: No Neurological: Yes: Alert, Oriented Labs: CBC, BMP 12/26/17 06:10 12/27/17 06:53 Problem List - Problems (1) Alcohol abuse Code(s): F10.10 - ALCOHOL ABUSE, UNCOMPLICATED (2) Acute asthma exacerbation Code(s): J45.901 - UNSPECIFIED ASTHMA WITH (ACUTE) EXACERBATION Qualifiers: Asthma severity: unspecified severity Asthma persistence: unspecified Qualified Code(s): J45.901 - Unspecified asthma with (acute) exacerbation (3) PNA (pneumonia) Code(s): J18.9 - PNEUMONIA, UNSPECIFIED ORGANISM Qualifiers: Pneumonia type: due to unspecified organism Laterality: unspecified laterality Lung location: unspecified part of lung Qualified Code(s): J18.9 - Pneumonia, unspecified organism (4) Tachycardia Code(s): R00.0 - TACHYCARDIA, UNSPECIFIED (5) Thrush, oral Code(s): B37.0 - CANDIDAL STOMATITIS (6) Hyponatremia Code(s): E87.1 - HYPO-OSMOLALITY AND HYPONATREMIA (7) GERD (gastroesophageal reflux disease) Code(s): K21.9 - GASTRO-ESOPHAGEAL REFLUX DISEASE WITHOUT ESOPHAGITIS (8) Elevated LFTs Code(s): R79.89 - OTHER SPECIFIED ABNORMAL FINDINGS OF BLOOD CHEMISTRY (9) Elevated fasting glucose Code(s): R73.01 - IMPAIRED FASTING GLUCOSE (10) Acute bronchitis Code(s): J20.9 - ACUTE BRONCHITIS, UNSPECIFIED (11) COPD with acute exacerbation Code(s): J44.1 - CHRONIC OBSTRUCTIVE PULMONARY DISEASE W (ACUTE) EXACERBATION Assessment/Plan Admitted to monitor bed (pt with respiratory disease, requires Librium for alcohol withdrawing; to monitor for respiratory decompensation); to increase Librium dose. Psychiatry consult. IV solu-medrol, to arthur Rib XR Duoned nebulized Pulmonary consult appreciated Nystatin oral solution Nicotine patch Azithromycin AM labs Case was d/w pt's nurse
[2017-12-27] MEDS ORDERED: chlordiazePOXIDE HCL 25 MG CAPSULE PO SCH ×2 (11:00→11:47)
--- NOTE | 2017-12-27 11:30 | PN ---
Progress Note (short form) - Note Progress Note: PULMONARY Breathing better today. Still with LUQ pain with coughing. Less wheezing. Last Vital Signs Temp Pulse Resp BP Pulse Ox 98.4 F 98 H 20 149/82 96 12/27/17 05:31 12/27/17 05:31 12/27/17 05:31 12/27/17 05:31 12/26/17 20:12 Gen: less tachypneic Heart: RRR Lung: better air entry, less wheezes Abd: soft, nontender Ext: no edema CBC, BMP 12/26/17 06:10 12/27/17 06:53 Active Medications Acetaminophen (Tylenol -) 650 mg PO Q6H PRN PRN Reason: PAIN Last Admin: 12/27/17 11:22 Dose: 650 mg Albuterol Sulfate (Ventolin 0.083% Nebulizer Soln -) 1 amp NEB Q4H PRN PRN Reason: SHORT OF BREATH/WHEEZING Last Admin: 12/27/17 09:27 Dose: 1 amp Budesonide/Formoterol Fumarate (Symbicort 80/4.5mcg -) 2 puff IH BID [facility] Last Admin: 12/27/17 09:24 Dose: 2 puff Chlordiazepoxide HCl (Librium -) 25 mg PO Q6H PRN PRN Reason: WITHDRAWAL(CONT SUBST) Chlordiazepoxide HCl (Librium -) 0 mg PO [id number] [facility]; Taper Stop: 01/08/18 10:59 Last Admin: 12/27/17 11:23 Dose: 25 mg Azithromycin 500 mg/ Dextrose 250 mls @ 250 mls/hr IVPB DAILY [facility] Stop: 12/28/17 11:44 Last Admin: 12/26/17 15:51 Dose: 250 mls/hr Insulin Aspart (Novolog Vial Sliding Scale -) 1 vial SQ Q4H [facility]; Protocol Last Admin: 12/27/17 09:39 Dose: 2 unit Methylprednisolone Sodium Succinate (Solu-Medrol -) 40 mg IVPUSH Q8H-IV [facility] Montelukast Sodium (Singulair -) 10 mg PO HS [facility] Last Admin: 12/26/17 21:49 Dose: 10 mg Nicotine (Nicoderm Patch -) 21 mg TD DAILY [facility] Last Admin: 12/27/17 09:24 Dose: 21 mg Nystatin (Nystatin Oral Suspension -) 500,000 units PO Q6HPO [facility] Last Admin: 12/27/17 11:23 Dose: 500,000 units Pantoprazole Sodium (Protonix -) 40 mg PO DAILY [facility] Last Admin: 12/27/17 09:24 Dose: 40 mg A/P Acute COPD Exacerbation Alcohol Abuse Elevated LFTs likely above Smoker - medrol - inhaled bronchodilators standing and PRN - can likely change steroids to PO prednisone in AM if continues to improve - O2 as needed - smoking cessation - DVT prophylaxis Problem List - Problems (1) COPD with acute exacerbation Code(s): J44.1 - CHRONIC OBSTRUCTIVE PULMONARY DISEASE W (ACUTE) EXACERBATION (2) Alcohol abuse Code(s): F10.10 - ALCOHOL ABUSE, UNCOMPLICATED (3) Elevated LFTs Code(s): R79.89 - OTHER SPECIFIED ABNORMAL FINDINGS OF BLOOD CHEMISTRY (4) Smoker Code(s): F17.200 - NICOTINE DEPENDENCE, UNSPECIFIED, UNCOMPLICATED
[2017-12-27] MEDS: chlordiazePOXIDE HCL 25 MG CAPSULE PO SCH ×2 (11:45→17:05)
[2017-12-27] MEDS: AZITHROMYCIN IVPB 500 MG in DEXTROSE 5%-WATER - 250 ML IVPB SCH (13:00)
--- NOTE | 2017-12-27 14:53 | CON.PSY ---
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 Symptoms: reports: Depressed Mood, Anhedonia - Previous Psychiatric Treatment Outpatient: None Inpatient: None - Previous Substance Abuse Treatment Inpatient: 2 or more prior admissions - Reason for Previous Treatment Reason for Previous Treatment: Alcohol Abuse - Current Medications Current Medications: Active Medications Acetaminophen (Tylenol -) 650 mg PO Q6H PRN PRN Reason: PAIN Last Admin: 12/27/17 11:22 Dose: 650 mg Albuterol Sulfate (Ventolin 0.083% Nebulizer Soln -) 1 amp NEB Q4H PRN PRN Reason: SHORT OF BREATH/WHEEZING Last Admin: 12/27/17 09:27 Dose: 1 amp Budesonide/Formoterol Fumarate (Symbicort 80/4.5mcg -) 2 puff IH BID [facility] Last Admin: 12/27/17 09:24 Dose: 2 puff Chlordiazepoxide HCl (Librium -) 25 mg PO Q6H PRN PRN Reason: WITHDRAWAL(CONT SUBST) Chlordiazepoxide HCl (Librium -) 25 mg PO [id number] [facility] Stop: 12/29/17 10:59 Last Admin: 12/27/17 11:45 Dose: Not Given Chlordiazepoxide HCl (Librium -) 20 mg PO [id number] [facility] Stop: 12/31/17 10:59 Chlordiazepoxide HCl (Librium -) 10 mg PO [id number] [facility] Stop: 01/02/18 10:59 Chlordiazepoxide HCl (Librium -) 10 mg PO 0300,1100,1900 [facility] Stop: 01/04/18 10:59 Chlordiazepoxide HCl (Librium -) 10 mg PO Q12H [facility] Stop: 01/06/18 10:59 Chlordiazepoxide HCl (Librium -) 10 mg PO Q24H [facility] Stop: 01/08/18 10:59 Azithromycin 500 mg/ Dextrose 250 mls @ 250 mls/hr IVPB DAILY [facility] Stop: 12/28/17 11:44 Last Admin: 12/27/17 13:00 Dose: 250 mls/hr Insulin Aspart (Novolog Vial Sliding Scale -) 1 vial SQ Q4H [facility]; Protocol Last Admin: 12/27/17 12:42 Dose: Not Given Methylprednisolone Sodium Succinate (Solu-Medrol -) 40 mg IVPUSH Q8H-IV [facility] Montelukast Sodium (Singulair -) 10 mg PO HS [facility] Last Admin: 12/26/17 21:49 Dose: 10 mg Nicotine (Nicoderm Patch -) 21 mg TD DAILY [facility] Last Admin: 12/27/17 09:24 Dose: 21 mg Nystatin (Nystatin Oral Suspension -) 500,000 units PO Q6HPO [facility] Last Admin: 12/27/17 11:23 Dose: 500,000 units Pantoprazole Sodium (Protonix -) 40 mg PO DAILY [facility] Last Admin: 12/27/17 09:24 Dose: 40 mg - Allergies Allergies: Allergies Allergy/AdvReac Type Severity Reaction Status Date / Time No Known Allergies Allergy Verified 12/25/17 14:34 - Current Living Status Usual Living Arrangement: With Spouse - Current Mental Status Evaluation Appearance: Well Groomed Attitude: Cooperative - Affect Affect: Constrictive Appropriateness: Appropriate to Content - Mood Mood: Depressed - Speech/Language Expressive: Coherent - Psychomotor Activity Psychomotor Activity: Normal - Thought Process Thought Process: Intact - Thought Content Hallucinations: Absent Delusions: Absent - Self Perception Self Perception: No Impairment - Cognition Attention: Alert Orientation: Time Memory, Immediate Recall: Intact Memory, Short Term: 3/3 Memory, Remote with Promptin/3 - Concentration Serial Sevens Intact: Yes Simple Calculations Intact: Yes - Abstraction Proverb Interpretation: Intact Judgement: Moderately Impaired - Insight Insight: Intact - Suicidal Ideation Suicidal Ideation: No - Homicidal Ideation Homicidal Ideation: No Assessment/Plan 1)Lexapro 10mg po od.
[2017-12-27] MEDS: chlordiazePOXIDE HCL 25 MG CAPSULE PO PRN ×2 (15:13→21:32)
[2017-12-27] MEDS: MONTELUKAST NA 10 MG TABLET PO SCH (21:31)
[2017-12-28] MEDS: NYSTATIN 500,000 UNITS/5 ML SUSPENSION PO SCH ×4 (00:01→17:25)
[2017-12-28] MEDS: chlordiazePOXIDE HCL 25 MG CAPSULE PO SCH ×5 (00:14→22:08)
[2017-12-28] MEDS: ACETAMINOPHEN 325 MG TABLET (FP) PO PRN ×3 (00:41→18:18)
[2017-12-28] MEDS: methylPREDNISolone NA SUCC 40 MG/1 ML VIAL IVPUSH SCH ×3 (01:00→17:25)
[2017-12-28] MEDS: INSULIN SLIDING SCALE (NOVOLOG) 1 VIAL SQ SCH ×3 (06:43→17:32)
[2017-12-28 07:41] LABS: ANION GAP 9 (8-16); BLOOD UREA NITROGEN 22 mg/dL (7-18); CALCIUM 8.8 mg/dL (8.5-10.1); CHLORIDE 105 mmol/L (98-107); CO2 25 mmol/L (21-32); GLUCOSE,RANDOM 162 mg/dL (74-106); POTASSIUM 4.1 mmol/L (3.5-5.1); SODIUM 139 mmol/L (136-145)
[2017-12-28] MEDS: ESCITALOPRAM OXALATE 10 MG TABLET (FP) PO SCH (09:39)
[2017-12-28] MEDS: PANTOPRAZOLE 40 MG TABLET (FP) PO SCH (09:39)
[2017-12-28] MEDS: NICOTINE 21 MG/24 HOURS TOPICAL PATCH TD SCH (09:39)
[2017-12-28] MEDS: BUDESONIDE/FORMETEROL FUMARATE 80/4.5 mcg INHALER IH SCH ×2 (09:40→22:08)
[2017-12-28] MEDS: AZITHROMYCIN IVPB 500 MG in DEXTROSE 5%-WATER - 250 ML IVPB SCH (10:00)
--- NOTE | 2017-12-28 10:01 | PN ---
Progress Note (short form) - Note Progress Note: PULMONARY Breathing slowly improving. Still with LUQ pain with coughing. Less wheezing. Last Vital Signs Temp Pulse Resp BP Pulse Ox 97.6 F 80 20 137/75 96 12/28/17 06:00 12/28/17 06:00 12/28/17 06:00 12/28/17 06:00 12/27/17 21:00 Gen: less tachypneic Heart: RRR Lung: better air entry, less wheezes Abd: soft, nontender Ext: no edema CBC, BMP 12/26/17 06:10 12/28/17 06:50 Active Medications Acetaminophen (Tylenol -) 650 mg PO Q6H PRN PRN Reason: PAIN Last Admin: 12/28/17 09:47 Dose: 650 mg Albuterol Sulfate (Ventolin 0.083% Nebulizer Soln -) 1 amp NEB Q4H PRN PRN Reason: SHORT OF BREATH/WHEEZING Last Admin: 12/27/17 17:20 Dose: 1 amp Budesonide/Formoterol Fumarate (Symbicort 80/4.5mcg -) 2 puff IH BID [facility] Last Admin: 12/28/17 09:40 Dose: 2 puff Chlordiazepoxide HCl (Librium -) 25 mg PO Q6H PRN PRN Reason: WITHDRAWAL(CONT SUBST) Last Admin: 12/27/17 21:32 Dose: 25 mg Chlordiazepoxide HCl (Librium -) 25 mg PO [id number] [facility] Stop: 12/29/17 10:59 Last Admin: 12/28/17 05:21 Dose: 25 mg Chlordiazepoxide HCl (Librium -) 20 mg PO [id number] [facility] Stop: 12/31/17 10:59 Chlordiazepoxide HCl (Librium -) 10 mg PO [id number] [facility] Stop: 01/02/18 10:59 Chlordiazepoxide HCl (Librium -) 10 mg PO 0300,1100,1900 [facility] Stop: 01/04/18 10:59 Chlordiazepoxide HCl (Librium -) 10 mg PO Q12H [facility] Stop: 01/06/18 10:59 Chlordiazepoxide HCl (Librium -) 10 mg PO Q24H [facility] Stop: 01/08/18 10:59 Escitalopram Oxalate (Lexapro -) 10 mg PO DAILY [facility] Last Admin: 12/28/17 09:39 Dose: 10 mg Azithromycin 500 mg/ Dextrose 250 mls @ 250 mls/hr IVPB DAILY [facility] Stop: 12/28/17 11:44 Last Admin: 12/27/17 13:00 Dose: 250 mls/hr Insulin Aspart (Novolog Vial Sliding Scale -) 1 vial SQ TIDAC [facility]; Protocol Last Admin: 12/28/17 06:43 Dose: Not Given Methylprednisolone Sodium Succinate (Solu-Medrol -) 40 mg IVPUSH Q8H-IV [facility] Last Admin: 12/28/17 09:39 Dose: 40 mg Montelukast Sodium (Singulair -) 10 mg PO HS [facility] Last Admin: 12/27/17 21:31 Dose: 10 mg Nicotine (Nicoderm Patch -) 21 mg TD DAILY [facility] Last Admin: 12/28/17 09:39 Dose: 21 mg Nystatin (Nystatin Oral Suspension -) 500,000 units PO Q6HPO [facility] Last Admin: 12/28/17 05:21 Dose: 500,000 units Pantoprazole Sodium (Protonix -) 40 mg PO DAILY [facility] Last Admin: 12/28/17 09:39 Dose: 40 mg A/P Acute COPD Exacerbation Alcohol Abuse Elevated LFTs likely above Smoker - continue medrol at current dose - inhaled bronchodilators standing and PRN - O2 as needed - smoking cessation - DVT prophylaxis Problem List - Problems (1) COPD with acute exacerbation Code(s): J44.1 - CHRONIC OBSTRUCTIVE PULMONARY DISEASE W (ACUTE) EXACERBATION (2) Alcohol abuse Code(s): F10.10 - ALCOHOL ABUSE, UNCOMPLICATED (3) Elevated LFTs Code(s): R79.89 - OTHER SPECIFIED ABNORMAL FINDINGS OF BLOOD CHEMISTRY (4) Smoker Code(s): F17.200 - NICOTINE DEPENDENCE, UNSPECIFIED, UNCOMPLICATED
[2017-12-28] MEDS: ALBUTEROL SO4 2.5/IPRATROPIUM 0.5 INH SOL 3 ML VIAL.NEB. NEB SCH ×3 (11:24→20:25)
--- NOTE | 2017-12-28 13:13 | PN ---
Progress Note, Physician History of Present Illness: Pt still feels anxious, somewhat better. Pt c/o rib pain associated with cough. Pt w/o SOB while in bed, no CP/ palpitations/ dizziness/ abd pain. Pt is wheezing less. - Current Medication List Current Medications: Active Medications Acetaminophen (Tylenol -) 650 mg PO Q6H PRN PRN Reason: PAIN Last Admin: 12/28/17 09:47 Dose: 650 mg Albuterol Sulfate (Ventolin 0.083% Nebulizer Soln -) 1 amp NEB Q4H PRN PRN Reason: SHORT OF BREATH/WHEEZING Last Admin: 12/27/17 17:20 Dose: 1 amp Albuterol/Ipratropium (Duoneb -) 1 amp NEB RQID [facility] Last Admin: 12/28/17 11:24 Dose: 1 amp Budesonide/Formoterol Fumarate (Symbicort 80/4.5mcg -) 2 puff IH BID [facility] Last Admin: 12/28/17 09:40 Dose: 2 puff Chlordiazepoxide HCl (Librium -) 25 mg PO Q6H PRN PRN Reason: WITHDRAWAL(CONT SUBST) Last Admin: 12/27/17 21:32 Dose: 25 mg Chlordiazepoxide HCl (Librium -) 25 mg PO [id number] [facility] Stop: 12/29/17 10:59 Last Admin: 12/28/17 11:23 Dose: 25 mg Chlordiazepoxide HCl (Librium -) 20 mg PO [id number] [facility] Stop: 12/31/17 10:59 Chlordiazepoxide HCl (Librium -) 10 mg PO [id number] [facility] Stop: 01/02/18 10:59 Chlordiazepoxide HCl (Librium -) 10 mg PO 0300,1100,1900 [facility] Stop: 01/04/18 10:59 Chlordiazepoxide HCl (Librium -) 10 mg PO Q12H [facility] Stop: 01/06/18 10:59 Chlordiazepoxide HCl (Librium -) 10 mg PO Q24H [facility] Stop: 01/08/18 10:59 Escitalopram Oxalate (Lexapro -) 10 mg PO DAILY [facility] Last Admin: 12/28/17 09:39 Dose: 10 mg Insulin Aspart (Novolog Vial Sliding Scale -) 1 vial SQ TIDAC [facility]; Protocol Last Admin: 12/28/17 11:28 Dose: Not Given Methylprednisolone Sodium Succinate (Solu-Medrol -) 40 mg IVPUSH Q8H-IV [facility] Last Admin: 12/28/17 09:39 Dose: 40 mg Montelukast Sodium (Singulair -) 10 mg PO HS [facility] Last Admin: 12/27/17 21:31 Dose: 10 mg Nicotine (Nicoderm Patch -) 21 mg TD DAILY [facility] Last Admin: 12/28/17 09:39 Dose: 21 mg Nystatin (Nystatin Oral Suspension -) 500,000 units PO Q6HPO [facility] Last Admin: 12/28/17 11:26 Dose: 500,000 units Pantoprazole Sodium (Protonix -) 40 mg PO DAILY [facility] Last Admin: 12/28/17 09:39 Dose: 40 mg - Objective Vital Signs: Vital Signs Temperature 98 F 12/28/17 09:00 Pulse Rate 90 12/28/17 09:00 Respiratory Rate 20 12/28/17 09:00 Blood Pressure 132/92 12/28/17 09:00 O2 Sat by Pulse Oximetry (%) 97 12/28/17 09:00 Constitutional: Yes: No Distress, Calm Cardiovascular: Yes: Regular Rate and Rhythm, S1, S2 Respiratory: Yes: Regular, Rales, Wheezes Gastrointestinal: Yes: Normal Bowel Sounds, Soft. No: Tenderness Edema: No Neurological: Yes: Alert, Oriented Labs: CBC, BMP 12/26/17 06:10 12/28/17 06:50 - ....Imaging X-ray: Report Reviewed Problem List - Problems (1) Alcohol abuse Code(s): F10.10 - ALCOHOL ABUSE, UNCOMPLICATED (2) Acute asthma exacerbation Code(s): J45.901 - UNSPECIFIED ASTHMA WITH (ACUTE) EXACERBATION Qualifiers: Asthma severity: unspecified severity Asthma persistence: unspecified Qualified Code(s): J45.901 - Unspecified asthma with (acute) exacerbation (3) PNA (pneumonia) Code(s): J18.9 - PNEUMONIA, UNSPECIFIED ORGANISM Qualifiers: Pneumonia type: due to unspecified organism Laterality: unspecified laterality Lung location: unspecified part of lung Qualified Code(s): J18.9 - Pneumonia, unspecified organism (4) Tachycardia Code(s): R00.0 - TACHYCARDIA, UNSPECIFIED (5) Thrush, oral Code(s): B37.0 - CANDIDAL STOMATITIS (6) Hyponatremia Code(s): E87.1 - HYPO-OSMOLALITY AND HYPONATREMIA (7) GERD (gastroesophageal reflux disease) Code(s): K21.9 - GASTRO-ESOPHAGEAL REFLUX DISEASE WITHOUT ESOPHAGITIS (8) Elevated LFTs Code(s): R79.89 - OTHER SPECIFIED ABNORMAL FINDINGS OF BLOOD CHEMISTRY (9) Elevated fasting glucose Code(s): R73.01 - IMPAIRED FASTING GLUCOSE (10) Acute bronchitis Code(s): J20.9 - ACUTE BRONCHITIS, UNSPECIFIED (11) COPD with acute exacerbation Code(s): J44.1 - CHRONIC OBSTRUCTIVE PULMONARY DISEASE W (ACUTE) EXACERBATION Assessment/Plan Admitted to monitor bed (pt with respiratory disease, requires Librium for alcohol withdrawing; to monitor for respiratory decompensation). Psychiatry consult. IV solu-medrol, continue same dose Rib XR- reviewed, no Fx Duoned nebulized Pulmonary consult appreciated Nystatin oral solution Nicotine patch Azithromycin AM labs Case was d/w pt's nurse
--- NOTE | 2017-12-28 13:23 | PN ---
Progress Note (short form) - Note Progress Note: Case discussed with about Management with Lexapro. Patient seen, alert, walking around, In Good spirits. No evidence of any suicidal or other behavioral disturbances. Cognition is intact. Tolerating Lexapro well. Plan; Discharge when medically clear. 2) continue with LExapro 10mg po od.
[2017-12-28] MEDS ORDERED: PT OWN MED DRAWER 7, Y5N ONE (21:59)
[2017-12-28] MEDS: MONTELUKAST NA 10 MG TABLET PO SCH (22:08)
[2017-12-29] MEDS: NYSTATIN 500,000 UNITS/5 ML SUSPENSION PO SCH ×4 (00:30→17:18)
[2017-12-29] MEDS: chlordiazePOXIDE HCL 25 MG CAPSULE PO PRN ×2 (01:23→21:21)
[2017-12-29] MEDS: ACETAMINOPHEN 325 MG TABLET (FP) PO PRN ×3 (01:24→20:11)
[2017-12-29] MEDS: methylPREDNISolone NA SUCC 40 MG/1 ML VIAL IVPUSH SCH ×3 (01:24→17:19)
[2017-12-29] MEDS: chlordiazePOXIDE HCL 25 MG CAPSULE PO SCH (05:48)
[2017-12-29] MEDS: INSULIN SLIDING SCALE (NOVOLOG) 1 VIAL SQ SCH ×3 (06:48→17:17)
[2017-12-29] MEDS: ALBUTEROL SO4 0.083% IH SOL 2.5 MG/3 ML VIAL.NEB. NEB PRN (06:55)
[2017-12-29] MEDS: ALBUTEROL SO4 2.5/IPRATROPIUM 0.5 INH SOL 3 ML VIAL.NEB. NEB SCH ×4 (07:20→21:00)
[2017-12-29 07:21] LABS: ANION GAP 8 (8-16); CHLORIDE 101 mmol/L (98-107); CO2 28 mmol/L (21-32); SODIUM 137 mmol/L (136-145)
[2017-12-29 07:24] LABS: BLOOD UREA NITROGEN 24 mg/dL (7-18); CREATININE 1.1 mg/dL (0.7-1.3); GLUCOSE,RANDOM 163 mg/dL (74-106)
[2017-12-29] MEDS: BUDESONIDE/FORMETEROL FUMARATE 80/4.5 mcg INHALER IH SCH ×2 (09:45→21:20)
[2017-12-29] MEDS: ESCITALOPRAM OXALATE 10 MG TABLET (FP) PO SCH (09:45)
[2017-12-29] MEDS: PANTOPRAZOLE 40 MG TABLET (FP) PO SCH (09:45)
[2017-12-29] MEDS: NICOTINE 21 MG/24 HOURS TOPICAL PATCH TD SCH (09:45)
--- NOTE | 2017-12-29 10:21 | PN ---
Progress Note, Physician History of Present Illness: pulmonary alert,less dyspneic,+ dry cough,+ c/o LUQ pain with cough - Current Medication List Current Medications: Active Medications Acetaminophen (Tylenol -) 650 mg PO Q6H PRN PRN Reason: PAIN Last Admin: 12/29/17 09:58 Dose: 650 mg Albuterol Sulfate (Ventolin 0.083% Nebulizer Soln -) 1 amp NEB Q4H PRN PRN Reason: SHORT OF BREATH/WHEEZING Last Admin: 12/29/17 06:55 Dose: 1 amp Albuterol/Ipratropium (Duoneb -) 1 amp NEB RQID [facility] Last Admin: 12/28/17 20:25 Dose: 1 amp Budesonide/Formoterol Fumarate (Symbicort 80/4.5mcg -) 2 puff IH BID [facility] Last Admin: 12/29/17 09:45 Dose: 2 puff Chlordiazepoxide HCl (Librium -) 25 mg PO Q6H PRN PRN Reason: WITHDRAWAL(CONT SUBST) Last Admin: 12/29/17 01:23 Dose: 25 mg Chlordiazepoxide HCl (Librium -) 25 mg PO [id number] [facility] Stop: 12/29/17 10:59 Last Admin: 12/29/17 05:48 Dose: 25 mg Chlordiazepoxide HCl (Librium -) 20 mg PO [id number] [facility] Stop: 12/31/17 10:59 Chlordiazepoxide HCl (Librium -) 10 mg PO [id number] [facility] Stop: 01/02/18 10:59 Chlordiazepoxide HCl (Librium -) 10 mg PO 0300,1100,1900 [facility] Stop: 01/04/18 10:59 Chlordiazepoxide HCl (Librium -) 10 mg PO Q12H [facility] Stop: 01/06/18 10:59 Chlordiazepoxide HCl (Librium -) 10 mg PO Q24H [facility] Stop: 01/08/18 10:59 Escitalopram Oxalate (Lexapro -) 10 mg PO DAILY [facility] Last Admin: 12/29/17 09:45 Dose: 10 mg Insulin Aspart (Novolog Vial Sliding Scale -) 1 vial SQ TIDAC [facility]; Protocol Last Admin: 12/29/17 06:48 Dose: Not Given Methylprednisolone Sodium Succinate (Solu-Medrol -) 40 mg IVPUSH Q8H-IV [facility] Last Admin: 12/29/17 09:45 Dose: 40 mg Montelukast Sodium (Singulair -) 10 mg PO HS [facility] Last Admin: 12/28/17 22:08 Dose: 10 mg Nicotine (Nicoderm Patch -) 21 mg TD DAILY [facility] Last Admin: 12/29/17 09:45 Dose: 21 mg Nystatin (Nystatin Oral Suspension -) 500,000 units PO Q6HPO [facility] Last Admin: 12/29/17 05:48 Dose: 500,000 units Pantoprazole Sodium (Protonix -) 40 mg PO DAILY [facility] Last Admin: 12/29/17 09:45 Dose: 40 mg - Objective Vital Signs: Vital Signs Temperature 97.8 F 12/29/17 06:00 Pulse Rate 65 12/29/17 06:00 Respiratory Rate 20 12/29/17 06:00 Blood Pressure 132/80 12/29/17 06:00 O2 Sat by Pulse Oximetry (%) 98 12/28/17 21:00 Constitutional: Yes: Well Nourished, Calm Eyes: Yes: WNL HENT: Yes: WNL Neck: Yes: WNL Cardiovascular: Yes: Regular Rate and Rhythm, S1, S2 Respiratory: Yes: Wheezes (few wheezes) Gastrointestinal: Yes: Normal Bowel Sounds, Soft Extremities: Yes: WNL Edema: No Labs: CBC, BMP 12/26/17 06:10 12/29/17 06:00 Assessment/Plan Assessment/Plan Acute COPD Exacerbation Alcohol Abuse Elevated LFTs improving Smoker - taper medrol - inhaled bronchodilators standing and PRN - O2 as needed - trend LFTs - smoking cessation - DVT prophylaxis - chest ct DR PAEZ
[2017-12-29] MEDS: chlordiazePOXIDE 5 MG CAPSULE PO SCH ×3 (11:23→23:45)
--- NOTE | 2017-12-29 16:35 | PN ---
Progress Note, Physician History of Present Illness: Pt still feels anxious, somewhat better. Pt c/o rib pain associated with cough. Pt w/o SOB while in bed, no CP/ palpitations/ dizziness/ abd pain. Pt is wheezing less. - Current Medication List Current Medications: Active Medications Acetaminophen (Tylenol -) 650 mg PO Q6H PRN PRN Reason: PAIN Last Admin: 12/29/17 09:58 Dose: 650 mg Albuterol Sulfate (Ventolin 0.083% Nebulizer Soln -) 1 amp NEB Q4H PRN PRN Reason: SHORT OF BREATH/WHEEZING Last Admin: 12/29/17 06:55 Dose: 1 amp Albuterol/Ipratropium (Duoneb -) 1 amp NEB RQID [facility] Last Admin: 12/29/17 11:47 Dose: 1 amp Budesonide/Formoterol Fumarate (Symbicort 80/4.5mcg -) 2 puff IH BID [facility] Last Admin: 12/29/17 09:45 Dose: 2 puff Chlordiazepoxide HCl (Librium -) 25 mg PO Q6H PRN PRN Reason: WITHDRAWAL(CONT SUBST) Last Admin: 12/29/17 01:23 Dose: 25 mg Chlordiazepoxide HCl (Librium -) 20 mg PO [id number] [facility] Stop: 12/31/17 10:59 Last Admin: 12/29/17 11:23 Dose: 20 mg Chlordiazepoxide HCl (Librium -) 10 mg PO [id number] [facility] Stop: 01/02/18 10:59 Chlordiazepoxide HCl (Librium -) 10 mg PO 0300,1100,1900 [facility] Stop: 01/04/18 10:59 Chlordiazepoxide HCl (Librium -) 10 mg PO Q12H [facility] Stop: 01/06/18 10:59 Chlordiazepoxide HCl (Librium -) 10 mg PO Q24H [facility] Stop: 01/08/18 10:59 Escitalopram Oxalate (Lexapro -) 10 mg PO DAILY [facility] Last Admin: 12/29/17 09:45 Dose: 10 mg Insulin Aspart (Novolog Vial Sliding Scale -) 1 vial SQ TIDAC [facility]; Protocol Last Admin: 12/29/17 11:27 Dose: Not Given Methylprednisolone Sodium Succinate (Solu-Medrol -) 40 mg IVPUSH Q8H-IV [facility] Stop: 12/30/17 02:00 Last Admin: 12/29/17 09:45 Dose: 40 mg Methylprednisolone Sodium Succinate (Solu-Medrol -) 40 mg IVPUSH Q12H [facility] Montelukast Sodium (Singulair -) 10 mg PO HS [facility] Last Admin: 12/28/17 22:08 Dose: 10 mg Nicotine (Nicoderm Patch -) 21 mg TD DAILY [facility] Last Admin: 12/29/17 09:45 Dose: 21 mg Nystatin (Nystatin Oral Suspension -) 500,000 units PO Q6HPO [facility] Last Admin: 12/29/17 11:23 Dose: 500,000 units Pantoprazole Sodium (Protonix -) 40 mg PO DAILY [facility] Last Admin: 12/29/17 09:45 Dose: 40 mg - Objective Vital Signs: Vital Signs Temperature 98.3 F 12/29/17 15:00 Pulse Rate 86 12/29/17 15:00 Respiratory Rate 20 12/29/17 15:00 Blood Pressure 120/79 12/29/17 15:00 O2 Sat by Pulse Oximetry (%) 98 12/28/17 21:00 Constitutional: Yes: No Distress, Calm Cardiovascular: Yes: Regular Rate and Rhythm, S1, S2 Respiratory: Yes: Regular, CTA Bilaterally, Wheezes Gastrointestinal: Yes: Normal Bowel Sounds, Soft. No: Tenderness Edema: No Neurological: Yes: Alert, Oriented Labs: CBC, BMP 12/26/17 06:10 12/29/17 06:00 Problem List - Problems (1) Alcohol abuse Code(s): F10.10 - ALCOHOL ABUSE, UNCOMPLICATED (2) Acute asthma exacerbation Code(s): J45.901 - UNSPECIFIED ASTHMA WITH (ACUTE) EXACERBATION Qualifiers: Asthma severity: unspecified severity Asthma persistence: unspecified Qualified Code(s): J45.901 - Unspecified asthma with (acute) exacerbation (3) PNA (pneumonia) Code(s): J18.9 - PNEUMONIA, UNSPECIFIED ORGANISM Qualifiers: Pneumonia type: due to unspecified organism Laterality: unspecified laterality Lung location: unspecified part of lung Qualified Code(s): J18.9 - Pneumonia, unspecified organism (4) Tachycardia Code(s): R00.0 - TACHYCARDIA, UNSPECIFIED (5) Thrush, oral Code(s): B37.0 - CANDIDAL STOMATITIS (6) Hyponatremia Code(s): E87.1 - HYPO-OSMOLALITY AND HYPONATREMIA (7) GERD (gastroesophageal reflux disease) Code(s): K21.9 - GASTRO-ESOPHAGEAL REFLUX DISEASE WITHOUT ESOPHAGITIS (8) Elevated LFTs Code(s): R79.89 - OTHER SPECIFIED ABNORMAL FINDINGS OF BLOOD CHEMISTRY (9) Elevated fasting glucose Code(s): R73.01 - IMPAIRED FASTING GLUCOSE (10) Acute bronchitis Code(s): J20.9 - ACUTE BRONCHITIS, UNSPECIFIED (11) COPD with acute exacerbation Code(s): J44.1 - CHRONIC OBSTRUCTIVE PULMONARY DISEASE W (ACUTE) EXACERBATION Assessment/Plan Admitted to monitor bed (pt with respiratory disease, requires Librium for alcohol withdrawing; to monitor for respiratory decompensation). Psychiatry consult. IV solu-medrol- arthur per Pulmonary Rib XR- reviewed, no Fx Duoned nebulized Pulmonary consult appreciated Nystatin oral solution Nicotine patch Case was d/w pt's nurse
[2017-12-29] MEDS ORDERED: PT OWN MED DRAWER 7, Y5N ONE (21:04)
[2017-12-29] MEDS: MONTELUKAST NA 10 MG TABLET PO SCH (21:20)
[2017-12-30] MEDS: methylPREDNISolone NA SUCC 40 MG/1 ML VIAL IVPUSH SCH ×3 (02:14→23:10)
[2017-12-30] MEDS: NYSTATIN 500,000 UNITS/5 ML SUSPENSION PO SCH ×5 (02:22→23:15)
[2017-12-30] MEDS: ACETAMINOPHEN 325 MG TABLET (FP) PO PRN ×2 (03:56→18:52)
[2017-12-30] MEDS: ALBUTEROL SO4 0.083% IH SOL 2.5 MG/3 ML VIAL.NEB. NEB PRN (04:06)
[2017-12-30] MEDS: chlordiazePOXIDE 5 MG CAPSULE PO SCH ×4 (05:48→23:11)
[2017-12-30] MEDS: INSULIN SLIDING SCALE (NOVOLOG) 1 VIAL SQ SCH ×3 (06:01→17:26)
[2017-12-30] MEDS ORDERED: PT OWN MED DRAWER 7, Y5N ONE ×4 (06:34→23:12)
[2017-12-30] MEDS: ALBUTEROL SO4 2.5/IPRATROPIUM 0.5 INH SOL 3 ML VIAL.NEB. NEB SCH ×5 (07:45→20:00)
[2017-12-30] MEDS: BUDESONIDE/FORMETEROL FUMARATE 80/4.5 mcg INHALER IH SCH ×2 (10:23→23:11)
[2017-12-30] MEDS: PANTOPRAZOLE 40 MG TABLET (FP) PO SCH (10:24)
[2017-12-30] MEDS: IBUPROFEN 400 MG TABLET (FP) PO PRN ×2 (10:24→23:16)
[2017-12-30] MEDS: NICOTINE 21 MG/24 HOURS TOPICAL PATCH TD SCH (10:25)
[2017-12-30] MEDS: ESCITALOPRAM OXALATE 10 MG TABLET (FP) PO SCH (10:25)
--- NOTE | 2017-12-30 10:55 | PN ---
Progress Note, Physician History of Present Illness: pulmonary alert,oob-chair,feeling better,dyspnea improving. - Current Medication List Current Medications: Active Medications Acetaminophen (Tylenol -) 650 mg PO Q6H PRN PRN Reason: PAIN Last Admin: 12/30/17 03:56 Dose: 650 mg Albuterol Sulfate (Ventolin 0.083% Nebulizer Soln -) 1 amp NEB Q4H PRN PRN Reason: SHORT OF BREATH/WHEEZING Last Admin: 12/30/17 04:06 Dose: 1 amp Albuterol/Ipratropium (Duoneb -) 1 amp NEB RQID [facility] Last Admin: 12/30/17 07:45 Dose: 1 amp Budesonide/Formoterol Fumarate (Symbicort 80/4.5mcg -) 2 puff IH BID [facility] Last Admin: 12/30/17 10:23 Dose: 2 puff Chlordiazepoxide HCl (Librium -) 25 mg PO Q6H PRN PRN Reason: WITHDRAWAL(CONT SUBST) Last Admin: 12/29/17 21:21 Dose: 25 mg Chlordiazepoxide HCl (Librium -) 20 mg PO Q5C-LRJ [facility] Stop: 12/31/17 10:59 Last Admin: 12/30/17 05:48 Dose: 20 mg Chlordiazepoxide HCl (Librium -) 10 mg PO [id number] [facility] Stop: 01/02/18 10:59 Chlordiazepoxide HCl (Librium -) 10 mg PO 0300,1100,1900 [facility] Stop: 01/04/18 10:59 Chlordiazepoxide HCl (Librium -) 10 mg PO Q12H [facility] Stop: 01/06/18 10:59 Chlordiazepoxide HCl (Librium -) 10 mg PO Q24H [facility] Stop: 01/08/18 10:59 Escitalopram Oxalate (Lexapro -) 10 mg PO DAILY [facility] Last Admin: 12/30/17 10:25 Dose: 10 mg Ibuprofen (Motrin -) 400 mg PO Q6H PRN PRN Reason: PAIN SCALE 1-6 Last Admin: 12/30/17 10:24 Dose: 400 mg Insulin Aspart (Novolog Vial Sliding Scale -) 1 vial SQ TIDAC [facility]; Protocol Last Admin: 12/30/17 06:01 Dose: Not Given Methylprednisolone Sodium Succinate (Solu-Medrol -) 40 mg IVPUSH Q12H [facility] Last Admin: 12/30/17 10:23 Dose: 40 mg Montelukast Sodium (Singulair -) 10 mg PO HS [facility] Last Admin: 12/29/17 21:20 Dose: 10 mg Nicotine (Nicoderm Patch -) 21 mg TD DAILY [facility] Last Admin: 12/30/17 10:25 Dose: 21 mg Nystatin (Nystatin Oral Suspension -) 500,000 units PO Q6HPO [facility] Last Admin: 12/30/17 05:49 Dose: 500,000 units Pantoprazole Sodium (Protonix -) 40 mg PO DAILY [facility] Last Admin: 12/30/17 10:24 Dose: 40 mg - Objective Vital Signs: Vital Signs Temperature 98 F 12/30/17 09:00 Pulse Rate 78 12/30/17 09:00 Respiratory Rate 18 12/30/17 09:00 Blood Pressure 140/86 12/30/17 09:00 O2 Sat by Pulse Oximetry (%) 100 12/29/17 21:00 Constitutional: Yes: Well Nourished, Calm Eyes: Yes: WNL HENT: Yes: WNL Neck: Yes: WNL Cardiovascular: Yes: Regular Rate and Rhythm, S1, S2 Respiratory: Yes: Wheezes (few wheezes) Gastrointestinal: Yes: Normal Bowel Sounds, Soft Extremities: Yes: WNL Edema: No Labs: CBC, BMP 12/26/17 06:10 12/29/17 06:00 - ....Imaging Cat Scan: Report Reviewed, Image Reviewed (pulmonary nodules stable.+ renal stones) Assessment/Plan Assessment/Plan Acute COPD Exacerbation improving Alcohol Abuse Elevated LFTs improving Smoker - taper medrol - prednisone in am - inhaled bronchodilators standing and PRN - O2 as needed - trend LFTs - smoking cessation - DVT prophylaxis - pfts outpatient - yearly low dose chest ct for lung cancer screening DR PAEZ
--- NOTE | 2017-12-30 11:02 | PN ---
Progress Note, Physician History of Present Illness: Pt w/o SOB while in bed, no CP/ palpitations/ dizziness/ abd pain. Pt with improved wheezing. - Current Medication List Current Medications: Active Medications Acetaminophen (Tylenol -) 650 mg PO Q6H PRN PRN Reason: PAIN Last Admin: 12/30/17 03:56 Dose: 650 mg Albuterol Sulfate (Ventolin 0.083% Nebulizer Soln -) 1 amp NEB Q4H PRN PRN Reason: SHORT OF BREATH/WHEEZING Last Admin: 12/30/17 04:06 Dose: 1 amp Albuterol/Ipratropium (Duoneb -) 1 amp NEB RQID [facility] Last Admin: 12/30/17 07:45 Dose: 1 amp Budesonide/Formoterol Fumarate (Symbicort 80/4.5mcg -) 2 puff IH BID [facility] Last Admin: 12/30/17 10:23 Dose: 2 puff Chlordiazepoxide HCl (Librium -) 25 mg PO Q6H PRN PRN Reason: WITHDRAWAL(CONT SUBST) Last Admin: 12/29/17 21:21 Dose: 25 mg Chlordiazepoxide HCl (Librium -) 20 mg PO [id number] [facility] Stop: 12/31/17 10:59 Last Admin: 12/30/17 11:02 Dose: 20 mg Chlordiazepoxide HCl (Librium -) 10 mg PO [id number] [facility] Stop: 01/02/18 10:59 Chlordiazepoxide HCl (Librium -) 10 mg PO 0300,1100,1900 [facility] Stop: 01/04/18 10:59 Chlordiazepoxide HCl (Librium -) 10 mg PO Q12H [facility] Stop: 01/06/18 10:59 Chlordiazepoxide HCl (Librium -) 10 mg PO Q24H [facility] Stop: 01/08/18 10:59 Escitalopram Oxalate (Lexapro -) 10 mg PO DAILY [facility] Last Admin: 12/30/17 10:25 Dose: 10 mg Ibuprofen (Motrin -) 400 mg PO Q6H PRN PRN Reason: PAIN SCALE 1-6 Last Admin: 12/30/17 10:24 Dose: 400 mg Insulin Aspart (Novolog Vial Sliding Scale -) 1 vial SQ TIDAC [facility]; Protocol Last Admin: 12/30/17 06:01 Dose: Not Given Methylprednisolone Sodium Succinate (Solu-Medrol -) 40 mg IVPUSH Q12H [facility] Stop: 12/30/17 23:00 Last Admin: 12/30/17 10:23 Dose: 40 mg Montelukast Sodium (Singulair -) 10 mg PO HS [facility] Last Admin: 12/29/17 21:20 Dose: 10 mg Nicotine (Nicoderm Patch -) 21 mg TD DAILY [facility] Last Admin: 12/30/17 10:25 Dose: 21 mg Nystatin (Nystatin Oral Suspension -) 500,000 units PO Q6HPO [facility] Last Admin: 12/30/17 05:49 Dose: 500,000 units Pantoprazole Sodium (Protonix -) 40 mg PO DAILY [facility] Last Admin: 12/30/17 10:24 Dose: 40 mg Prednisone (Deltasone -) 60 mg PO DAILY [facility] - Objective Vital Signs: Vital Signs Temperature 98 F 12/30/17 09:00 Pulse Rate 78 12/30/17 09:00 Respiratory Rate 18 12/30/17 09:00 Blood Pressure 140/86 12/30/17 09:00 O2 Sat by Pulse Oximetry (%) 100 12/29/17 21:00 Constitutional: Yes: No Distress, Calm Cardiovascular: Yes: Regular Rate and Rhythm, S1, S2 Respiratory: Yes: Regular, Wheezes (expiratory). No: Rhonchi Gastrointestinal: Yes: Normal Bowel Sounds, Soft. No: Tenderness Edema: No Neurological: Yes: Alert, Oriented Labs: CBC, BMP 12/26/17 06:10 12/29/17 06:00 Problem List - Problems (1) Alcohol abuse Code(s): F10.10 - ALCOHOL ABUSE, UNCOMPLICATED (2) Acute asthma exacerbation Code(s): J45.901 - UNSPECIFIED ASTHMA WITH (ACUTE) EXACERBATION Qualifiers: Asthma severity: unspecified severity Asthma persistence: unspecified Qualified Code(s): J45.901 - Unspecified asthma with (acute) exacerbation (3) PNA (pneumonia) Code(s): J18.9 - PNEUMONIA, UNSPECIFIED ORGANISM Qualifiers: Pneumonia type: due to unspecified organism Laterality: unspecified laterality Lung location: unspecified part of lung Qualified Code(s): J18.9 - Pneumonia, unspecified organism (4) Tachycardia Code(s): R00.0 - TACHYCARDIA, UNSPECIFIED (5) Thrush, oral Code(s): B37.0 - CANDIDAL STOMATITIS (6) Hyponatremia Code(s): E87.1 - HYPO-OSMOLALITY AND HYPONATREMIA (7) GERD (gastroesophageal reflux disease) Code(s): K21.9 - GASTRO-ESOPHAGEAL REFLUX DISEASE WITHOUT ESOPHAGITIS (8) Elevated LFTs Code(s): R79.89 - OTHER SPECIFIED ABNORMAL FINDINGS OF BLOOD CHEMISTRY (9) Elevated fasting glucose Code(s): R73.01 - IMPAIRED FASTING GLUCOSE (10) Acute bronchitis Code(s): J20.9 - ACUTE BRONCHITIS, UNSPECIFIED (11) COPD with acute exacerbation Code(s): J44.1 - CHRONIC OBSTRUCTIVE PULMONARY DISEASE W (ACUTE) EXACERBATION Assessment/Plan Admitted to monitor bed (pt with respiratory disease, requires Librium for alcohol withdrawing; to monitor for respiratory decompensation). IV solu-medrol Duoned nebulized Pulmonary consult appreciated Nystatin oral solution Nicotine patch AM labs Transfer top medical floor Case was d/w pt's nurse
[2017-12-30] MEDS: MONTELUKAST NA 10 MG TABLET PO SCH (23:10)
[2017-12-31] MEDS: ACETAMINOPHEN 325 MG TABLET (FP) PO PRN (03:57)
[2017-12-31] MEDS: chlordiazePOXIDE 5 MG CAPSULE PO SCH (05:46)
[2017-12-31] MEDS: NYSTATIN 500,000 UNITS/5 ML SUSPENSION PO SCH ×2 (05:47→11:42)
[2017-12-31] MEDS: ALBUTEROL SO4 0.083% IH SOL 2.5 MG/3 ML VIAL.NEB. NEB PRN (06:30)
[2017-12-31] MEDS: INSULIN SLIDING SCALE (NOVOLOG) 1 VIAL SQ SCH ×2 (06:32→11:45)
[2017-12-31] MEDS: IBUPROFEN 400 MG TABLET (FP) PO PRN (07:40)
[2017-12-31] MEDS: ALBUTEROL SO4 2.5/IPRATROPIUM 0.5 INH SOL 3 ML VIAL.NEB. NEB SCH ×2 (07:46→11:12)
[2017-12-31 08:10] LABS: CHLORIDE 101 mmol/L (98-107); POTASSIUM 4.5 mmol/L (3.5-5.1); SODIUM 135 mmol/L (136-145)
[2017-12-31 08:37] LABS: ANION GAP 8 (8-16); CALCIUM 8.5 mg/dL (8.5-10.1); CO2 26 mmol/L (21-32); CREATININE 1.2 mg/dL (0.7-1.3); GLUCOSE,RANDOM 158 mg/dL (74-106)
[2017-12-31 08:40] LABS: BLOOD UREA NITROGEN 30 mg/dL (7-18)
[2017-12-31] MEDS: BUDESONIDE/FORMETEROL FUMARATE 80/4.5 mcg INHALER IH SCH (09:41)
[2017-12-31] MEDS: NICOTINE 21 MG/24 HOURS TOPICAL PATCH TD SCH (09:42)
[2017-12-31] MEDS: ESCITALOPRAM OXALATE 10 MG TABLET (FP) PO SCH (09:42)
[2017-12-31] MEDS: PANTOPRAZOLE 40 MG TABLET (FP) PO SCH (09:42)
[2017-12-31] MEDS ORDERED: predniSONE 20 MG TABLET (UD) PO SCH (10:00)
[2017-12-31 10:29] VITALS: BP 144/80; PULSE 88; TEMP 98.7
[2017-12-31] MEDS ORDERED: chlordiazePOXIDE 5 MG CAPSULE PO SCH (11:00)
--- NOTE | 2017-12-31 11:54 | DS ---
Physical Examination Vital Signs: Vital Signs Temperature 98.7 F 12/31/17 10:00 Pulse Rate 88 12/31/17 10:00 Respiratory Rate 18 12/31/17 10:00 Blood Pressure 144/80 12/31/17 10:00 O2 Sat by Pulse Oximetry (%) 98 12/31/17 09:00 Findings/Remarks: Pt w/o SOB, wheezing, CP, palpitations. Pt's hand shaking is at [place] (on Librium). Constitutional: Yes: No Distress, Calm Cardiovascular: Yes: Regular Rate and Rhythm, S1, S2 Respiratory: Yes: Regular, CTA Bilaterally, Other (coarse BS). No: Wheezes Gastrointestinal: Yes: Normal Bowel Sounds, Soft, Abdomen, Obese. No: Tenderness Edema: No Neurological: Yes: Alert, Oriented Labs: CBC, BMP 12/26/17 06:10 12/31/17 06:15 Discharge Summary Reason For Visit: PNEUMONIA, ASTHMA W.ACUTE EXACERBATION Current Active Problems Acute asthma exacerbation (Acute) Acute bronchitis (Acute) Alcohol abuse (Acute) COPD with acute exacerbation (Acute) Elevated LFTs (Acute) Elevated fasting glucose (Acute) GERD (gastroesophageal reflux disease) (Acute) Hyponatremia (Acute) PNA (pneumonia) (Acute) Smoker (Acute) Tachycardia (Acute) Thrush, oral (Acute) Hospital Course: Pt came to ER c/o wheezing; also pt stated that is abusing alcohol (drinking a gallon of wine daily). Pt was admitted for acute asthma exacerbation and alcohol withdrawal. Pt was started on IV steroids and low dose Librium, as was monitored for respiratory distress; pt's dose of Librium was increased gradually as alcohol withdrawal became more symptomatic and pulmonary function was improving. Pt was noticed to have elevated fasting Glucose, probable secondary to IV steroids- to be monitored as outpatient. Pt was seen in consult by Pulmonary (Dr. Malloy). Pt's condition started to improve, steroid and Librium dose was arthur. Pt with depression, was seen by Psychiatry (Dr. Putnam ), started on Lexapro ( to be in creased in 1-2 weeks). Pt to be DC'ed home on Prednisone, Librium (both arthur schedule). Condition: Improved - Instructions Diet, Activity, Other Instructions: NCS diet. Disposition: HOME - Home Medications Comprehensive Discharge Medication List: Ambulatory Orders
[2018-01-02] MEDS ORDERED: chlordiazePOXIDE 5 MG CAPSULE PO SCH (11:00)
[2018-01-04] MEDS ORDERED: chlordiazePOXIDE 5 MG CAPSULE PO SCH (11:00)
[2018-01-06] MEDS ORDERED: chlordiazePOXIDE 5 MG CAPSULE PO SCH (11:00)
== END 2017-12-31 12:25 | disposition home or self-care (01) | DRG 190 ==
LOC: FER 14:33 → J4W 19:10
PROVIDERS: ADMIT Specialist; ATTEND Specialist
PROC: HZ2ZZZZ Detoxification Services for Substance Abuse Treatment (ICD-10-PCS; principal; 2017-12-25)
DX: J44.1 Chronic obstructive pulmonary disease with (acute) exacerbation (principal); J18.9 Pneumonia, unspecified organism; J45.901 Unspecified asthma with (acute) exacerbation; B37.0 Candidal stomatitis; E87.1 Hypo-osmolality and hyponatremia; F10.239 Alcohol dependence with withdrawal, unspecified; R00.0 Tachycardia, unspecified; K21.9 Gastro-esophageal reflux disease without esophagitis; R79.89 Other specified abnormal findings of blood chemistry; E78.5 Hyperlipidemia, unspecified; J20.9 Acute bronchitis, unspecified; F17.210 Nicotine dependence, cigarettes, uncomplicated
CPT/HCPCS: 36415; 71045-TC-FY; 71101-TC-FY; 71250-TC; 80048; 80053; 82962; 83735; 84484; 85025; 85027; 93005; 94640; 99283-25; J7620

== ENCOUNTER 2020-05-23 20:05 | Emergency (ER) | payer BC ==
[2020-05-23] MEDS ORDERED: SODIUM CHLORIDE 1,000 ML IV STA (20:09)
[2020-05-23] MEDS ORDERED: METOCLOPRAMIDE HCL INJECTION 10 MG/2 ML VIAL IVPUSH ONE (20:09)
[2020-05-23] MEDS ORDERED: KETOROLAC TROMETHAMINE 30 MG/1 ML VIAL IVPUSH ONE (20:09)
--- NOTE | 2020-05-23 20:09 | PDOC ---
Rapid Medical Evaluation Time Seen by Provider: 05/23/20 20:07 Medical Evaluation: Allergies Allergy/AdvReac Type Severity Reaction Status Date / Time No Known Allergies Allergy Verified 12/25/17 14:34 05/23/20 20:07 I have performed a brief in person evaluation of this patient. CC: coronal and retro-orbital MC x2 weeks PE: Neuro grossly normal Orders: NS, reglan, benadryl, toradol Patient will proceed to ED for further evaluation. Discharge Disposition - Diagnosis Headache - Referrals - Patient Instructions - Post Discharge Activity
[2020-05-23 20:11] VITALS: BMI 30.5
[2020-05-23 20:17] VITALS: TEMP 98.6
--- OUTSIDE RECORDS SUMMARY | 2020-05-23 20:18 | XMS ---
:1965 Author Organization [facility] Care Team Providers Name Role Phone SERGIO KAVYA, KAVYA Unavailable Unavailable Re-disclosure Warning The records that you are about to access may contain information from federally- assisted alcohol or drug abuse programs. If such information is present, then the following federally mandated warning applies: This information has been disclosed to you from records protected by federal confidentiality rules (42 CFR part 2). The federal rules prohibit you from making any further disclosure of this information unless further disclosure is expressly permitted by the written consent of the person to whom it pertains or as otherwise permitted by 42 CFR part 2. A general authorization for the release of medical or other information is NOT sufficient for this purpose. The Federal rules restrict any use of the information to criminally investigate or prosecute any alcohol or drug abuse patient.The records that you are about to access may contain highly sensitive health information, the redisclosure of which is protected by Article 27-F of the [facility] Public Health law. If you continue you may haveaccess to information: Regarding HIV / AIDS; Provided by facilities licensed or operated by the [facility] Office of Mental Health; or Provided by the [facility] Office for People With Developmental Disabilities. If such information is present, then the following [facility] mandated warning applies: This information has been disclosed to you from confidential records which are protected by state law. State law prohibits you from making any further disclosure of this information without the specific written consent of the person to whom it pertains, or as otherwise permitted by law. Any unauthorized further disclosure in violation of state law may result in a fine or intermediate sentence or both. A general authorization for the release of medical or other information is NOT sufficient authorization for further disclosure. Encounters Encounter Providers Location Date Indications Data Source(s ) Outpatient Attender: KAVYA Chadwick 07/21/2018 [facility] [place] 10:[facility] HAUSERdmitter: WALE HOFF Insurance Providers Payer name Policy type Policy ID Covered Covered libertarian's Policy P nisha / Coverage libertarian ID relationship to [employer] type [place] [employer] P[place] [id number] [place] [id number] O BLUE CROSS O [id number] 01 [id number] [facility] Self Employee Plan-[facility] Mogujie CROSS [id number] self [id number]
[2020-05-23] MEDS ORDERED: METOCLOPRAMIDE HCL 10 MG TABLET (FP) PO ONE (21:42)
[2020-05-23] MEDS ORDERED: KETOROLAC TROMETHAMINE 30 MG/1 ML VIAL ONE (21:42)
[2020-05-23] MEDS ORDERED: METOCLOPRAMIDE HCL INJECTION 10 MG/2 ML VIAL ONE (21:44)
--- NOTE | 2020-05-23 22:39 | PDOC ---
History of Present Illness - General Chief Complaint: Headache Stated Complaint: SENT BY PCP/HEADACHE Time Seen by Provider: 05/23/20 20:07 History Source: Patient Exam Limitations: No Limitations - History of Present Illness Initial Comments: 05/23/20 22:38 Is a 55-year-old male past medical history hypertension hyperlipidemia presenting to the ED with intermittent headache for 2 weeks. Headache not associated with lacrimation, fever, vomiting, changes in vision, photophobia or neck stiffness; not maximal intensity at onset and non-exertional at onset. Patient states the headache started approximately 2 weeks ago when his allergies became worse and attributes it to sinus congestion. Patient took Motrin and Tylenol with only symptomatic relief. Pt otherwise denies: fevers, chills, syncope, lightheadedness, dizziness, neck pain, chest pain, shortness of breath, palpitations, back pain, abdominal pain, nausea, vomiting, diarrhea, constipation. 05/23/20 22:40 Past History - Medical History Allergies/Adverse Reactions: Allergies Allergy/AdvReac Type Severity Reaction Status Date / Time No Known Allergies Allergy Verified 05/23/20 20:10 Home Medications: Ambulatory Orders Montelukast Sodium [Singulair] 10 mg PO DAILY 12/25/17 Acetaminophen [Tylenol .Regular Strength -] 650 mg PO Q6H PRN tablet 12/31/17 Albuterol Sulfate Inhaler - [Ventolin HFA Inhaler -] 2 inh PO Q6H PRN #1 inh 12/31/17 Budesonide/Formeterol Fumarate [SYMBICORT 80/4.5mcg -] 2 puff IH BID #1 inhaler 12/31/17 Chlordiazepoxide [Librium -] See Taper PO [id number] #30 capsule MDD 4 12/31/17 Escitalopram Oxalate [Lexapro -] 10 mg PO DAILY #30 tablet 12/31/17 Ibuprofen [Motrin -] 400 mg PO Q6H PRN tablet 12/31/17 Nicotine Patch [Nicoderm Patch -] 21 mg TD DAILY #30 patch 12/31/17 Nystatin Oral Suspension - [Nystatin Oral Susp 352611 Units/5 ML -] 5 ml PO Q6HPO #400 ml MDD 4 12/31/17 Pantoprazole Sodium [Protonix -] 40 mg PO DAILY #14 tablet.ec MDD 1 12/31/17 predniSONE [Deltasone -] See Taper PO DAILY #17 tablet MDD 3 12/31/17 Amox-Tr/K Cl [Augmentin - 875Mg Tablet] 1 tab PO BID #14 tablet 05/23/20 Asthma: Yes COPD: No Psychiatric Problems: Yes (drug and etoh abuse) - Psycho-Social/Smoking History Smoking Status: Yes Smoking History: Never smoked Have you smoked in the past 12 months: Yes Number of Cigarettes Smoked Daily: 30 'Breaking Loose' booklet given: 12/25/17 - Substance Abuse Hx (Audit-C & DAST Scrn) How often the patient has a drink containing alcohol: Never Score: In Men: 4 or > Positive; In Women: 3 or > Positive: 0 Screen Result (Pos requires Nsg. Audit-10AR): Negative In the last yr the pt used illegal drug/Rx for NonMed reason: No Score: Yes response is considered Positive: 0 Screen Result (Positive result requires Nsg. DAST-10): Negative *Physical Exam - Vital Signs Last Vital Signs Temp Pulse Resp BP Pulse Ox 98.6 F 73 18 163/88 99 05/23/20 20:08 05/23/20 20:08 05/23/20 20:08 05/23/20 20:08 05/23/20 20:08 - Physical Exam 05/23/20 22:41 Gen: AAOx 3, no acute distress, comfortable, no signs of respiratory distress HENT: atraumatic, normocephalic with no laceration or contusion. Nasal mucosa without erythema. Oropharynx without erythema or exudates. Mucous membranes moist. EYES: PERRL, EOM intact, conjunctiva pink NECK: supple; trachea midline; no JVD, no lymphadenopathy, or thyromegaly CV: RRR no murmurs, gallops, or rubs. CHEST: CTA b/l no wheezing, rales or rhonchi ABD: +BS/ND. no TTP; soft, no rebound, no guarding EXTREMITY: no cyanosis or erythema. 2+ dorsalis pedis, posterior tibial, and radial pulse. No pedal edema; no calf swelling or tenderness SKIN: no rash, warm and dry, no diaphoresis HEME: no purpura or ecchymosis NEURO: normal speech, CN II-XII intact, sensation intact, normal gait, able to tip toe and heel walk, romberg and pronator drift absent, no cerebellar deficits, normal finger to nose, heel to rudd, rapid alternating movements, no tremor, no dysmetria MS: 5/5 strength in all extremities, FROM intact in all extremities. ED Treatment Course - RADIOLOGY Radiology Studies Ordered: Category Date Time Status HEAD CT WITHOUT CONTRAST [CT] Stat CT Scan 05/23/20 20:28 Taken - Medications Given in the ED: ED Medications Discontinued Medications Generic Name Dose Route Start Last Admin Trade Name Cesar PRN Reason Stop Dose Admin Diphenhydramine HCl 25 mg 05/23/20 20:09 05/23/20 22:09 Benadryl Injection - IVPUSH 05/23/20 20:10 25 mg ONCE ONE Administration Sodium Chloride 1,000 mls @ 1,000 mls/hr 05/23/20 20:09 05/23/20 22:09 Normal Saline - IV 05/23/20 21:08 1,000 mls/hr ASDIR STA Administration Ketorolac Tromethamine 30 mg 05/23/20 20:09 05/23/20 22:09 Toradol Injection - IVPUSH 05/23/20 20:10 30 mg ONCE ONE Administration Metoclopramide HCl 10 mg 05/23/20 20:09 05/23/20 22:09 Reglan Injection - IVPUSH 05/23/20 20:10 10 mg ONCE ONE Administration Medical Decision Making - Medical Decision Making 05/23/20 22:48 For 55-year-old male with sinus-like headache We will give Benadryl Toradol Reglan and normal saline as well as obtain CT head Will reassess based on results Patient states that he feels much better with medicine CT shows no evidence of acute intracranial pathology however 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 Since has been going on for greater than 2 weeks I will discharge the patient on antibiotics with ENT follow-up. Pt appears well and is safe and stable for discharge with strict return precautions including signs and symptoms requring immediate return to the ED Supportive care instructions explained and given to pt. Reasons to return emergently to ER explained and given. Importance of follow up with PMD and other specialists as indicated stressed to pt. Pt verbalized understanding of instructions. Pt to follow up with PMD in 2 days. Discharge - Discharge Information Problems reviewed: Yes Clinical Impression/Diagnosis: Headache Qualifiers: Headache type: tension-type Headache chronicity pattern: unspecified pattern Intractability: not intractable Qualified Code(s): G44.209 - Tension-type headache, unspecified, not intractable Condition: Stable Disposition: HOME - Additional Discharge Information Prescriptions: Amox-Tr/K Cl [Augmentin - 875Mg Tablet] 1 tab PO BID #14 tablet - Follow up/Referral Referrals: Deonte Mayorga MD [Primary Care Provider] - - Patient Discharge Instructions Patient Printed Discharge Instructions: DI for Sinusitis - Post Discharge Activity
[2020-05-23 23:51] VITALS: BP 148/90; PULSE 56
== END 2020-05-23 23:59 | disposition home or self-care (01) ==
LOC: JER 20:05
PROC: 3E033NZ Introduction of Analgesics, Hypnotics, Sedatives into Peripheral Vein, Percutaneous Approach (ICD-10-PCS; principal; 2020-05-23)
PROC: 3E033GC Introduction of Other Therapeutic Substance into Peripheral Vein, Percutaneous Approach (ICD-10-PCS; 2020-05-23)
PROC: 3E0337Z Introduction of Electrolytic and Water Balance Substance into Peripheral Vein, Percutaneous Approach (ICD-10-PCS; 2020-05-23)
DX: G44.209 Tension-type headache, unspecified, not intractable (principal)
CPT/HCPCS: 70450-TC; 99285-25

== ENCOUNTER 2025-01-17 15:47 | Observation (INO) | payer BC ==
[2025-01-17] MEDS ORDERED: ACETAMINOPHEN INJECTION 100 ML ONE (17:42)
[2025-01-17] MEDS ORDERED: ALBUTEROL SO4 2.5/IPRATROPIUM 0.5 INH SOL 3 ML VIAL.NEB. NEB ONE (17:42)
[2025-01-17] MEDS: ACETAMINOPHEN 1000 MG/100 ML BAG IVPB ONE (18:00)
[2025-01-17] MEDS: ALBUTEROL SO4 2.5/IPRATROPIUM 0.5 INH SOL 3 ML VIAL.NEB. NEB SCH (18:00)
[2025-01-17 18:18] LABS: ABSOLUTE IMMATURE GRANULOCYTES 0.04 x10^3/uL (0.0-0.031); BASOPHILS # 0.07 x10^3/uL (0.01-0.08); EOSINOPHILS # 0.27 x10^3/uL (0.04-0.54); HEMATOCRIT 46.2 % (40.1-51.0); HEMOGLOBIN 15.3 g/dL (13.7-17.5); MCHC 33.1 g/dl (32.3-36.5); MEAN CELL VOLUME 92.6 fl (79.0-92.2); MEAN PLT VOLUME 10.5 fl (9.4-12.4); MONOCYTE # 0.99 x10^3/uL (0.30-0.82); MONOCYTE % 10.8 % (5.3-12.2); PLATELET COUNT 222 x10^3/uL (163-337); RDW 11.9 % (12.2-16.1)
[2025-01-17 18:29] LABS: INR 1.04 (0.83-1.09); PROTHROMBIN TIME (PATIENT) 11.4 SEC (9.7-13.0)
[2025-01-17 18:31] LABS: ACTIVATED PTT 31.3 SECONDS (25.2-36.5)
[2025-01-17 18:47] LABS: POTASSIUM 4.6 mmol/L (3.5-5.1)
[2025-01-17 18:51] LABS: ALBUMIN 4.2 g/dl (3.4-5.0); CALCIUM 9.9 mg/dL (8.5-10.1)
[2025-01-17 18:52] LABS: BLOOD UREA NITROGEN 17.3 mg/dL (7-18); MAGNESIUM 2.3 mg/dL (1.8-2.4)
[2025-01-17 18:55] LABS: CREATININE 1.2 mg/dL (0.55-1.3)
[2025-01-17 18:56] LABS: BILIRUBIN,TOTAL 0.6 mg/dL (0.2-1); TOT PROT 7.6 g/dl (6.4-8.2)
[2025-01-17 19:44] LABS: HCV DIAGNOSTIC IN-HOUSE W/RFLX NON-REACTIVE (NONREACTIVE)
[2025-01-17 19:45] LABS: HIV INTERPRETATION NEGATIVE (NEGATIVE)
[2025-01-17] MEDS ORDERED: NICOTINE 14 MG/24 HOURS TOPICAL PATCH TD ONE (20:37)
[2025-01-17] MEDS: NICOTINE 14 MG/24 HOURS TOPICAL PATCH TD ONE (23:34)
[2025-01-18] MEDS: ALBUTEROL SO4 HFA INHALER IH SCH (01:51)
[2025-01-18] MEDS: BUDESONIDE/FORMETEROL FUMARATE 80/4.5 mcg INHALER IH SCH (02:24)
[2025-01-18 03:58] VITALS: BMI 29.8
[2025-01-18] MEDS: ATORVASTATIN CA 40 MG TABLET (FP) PO SCH (04:23)
[2025-01-18 07:43] LABS: HEMATOCRIT 44.3 % (40.1-51.0); HEMOGLOBIN 14.7 g/dL (13.7-17.5); MCHC 33.2 g/dl (32.3-36.5); MEAN CELL VOLUME 92.1 fl (79.0-92.2); MEAN PLT VOLUME 10.7 fl (9.4-12.4); PLATELET COUNT 191 x10^3/uL (163-337); RDW 11.9 % (12.2-16.1)
[2025-01-18 07:52] LABS: POTASSIUM 4.2 mmol/L (3.5-5.1)
[2025-01-18 07:58] LABS: CALCIUM 9.3 mg/dL (8.5-10.1)
[2025-01-18 07:59] LABS: ALBUMIN 4.1 g/dl (3.4-5.0)
[2025-01-18 08:03] LABS: BILIRUBIN,TOTAL 0.7 mg/dL (0.2-1)
[2025-01-18 09:19] VITALS: PULSE 80; RESP 18; TEMP 97.9
[2025-01-18] MEDS: NICOTINE 14 MG/24 HOURS TOPICAL PATCH TD SCH (09:27)
[2025-01-18] MEDS: predniSONE 20 MG TABLET (UD) PO SCH (09:27)
[2025-01-18] MEDS: ENOXAPARIN NA (PORCINE) 40 MG/0.4 ML DISP.SYRIN SQ SCH (09:27)
[2025-01-18] MEDS: ASPIRIN 81 MG CHEWABLE TABLETS PO SCH (09:27)
[2025-01-18] MEDS ORDERED: predniSONE 20 MG TABLET (UD) PO SCH (10:00)
[2025-01-18 12:22] VITALS: BP 122/82
[2025-01-18] MEDS ORDERED: NICOTINE 14 MG/24 HOURS TOPICAL PATCH TD ONE (20:20)
== END 2025-01-18 12:27 | disposition home or self-care (01) ==
LOC: JER 15:47 → INTOOBSV 23:15 → JERBED 23:15 → UNDOADMOB 23:15 → JERBED 23:59 → J4W 01-18 01:28
PROVIDERS: ADMIT Hospitalist; ATTEND Internal Medicine
PROC: 3E033NZ Introduction of Analgesics, Hypnotics, Sedatives into Peripheral Vein, Percutaneous Approach (ICD-10-PCS; principal; 2025-01-17)
PROC: 3E0F7GC Introduction of Other Therapeutic Substance into Respiratory Tract, Via Natural or Artificial Opening (ICD-10-PCS; 2025-01-17)
PROC: 3E023GC Introduction of Other Therapeutic Substance into Muscle, Percutaneous Approach (ICD-10-PCS; 2025-01-17)
DX: R07.89 Other chest pain (principal); J45.909 Unspecified asthma, uncomplicated; R51.9 Headache, unspecified; H53.8 Other visual disturbances; I10 Essential (primary) hypertension; E78.5 Hyperlipidemia, unspecified; K76.0 Fatty (change of) liver, not elsewhere classified; F17.210 Nicotine dependence, cigarettes, uncomplicated
CPT/HCPCS: 36415; 70450-TC; 70496-TC; 70498-TC; 71046-TC-FY; 80053; 83735; 83880; 84484; 85025; 85027; 85610; 85651; 85730; 86140; 86618; 86803; 87389; 93005; 93010; 99285-25; G0378; Q9967